=== PATIENT | male | born 2000 | race Caucasian/White ===

== ENCOUNTER 2024-03-15 15:12 | Outpatient (AMB) | payer OTHER, SELFPAY ==
--- NOTE | 2024-03-15 15:14 | MHC.OFFVIS ---
Vital Signs 03/15/24 15:15 Height 6 ft Weight 176 lb 2.389 oz BMI 23.9 BP 130/70 Blood Pressure Location Lt brachial Position Sitting Pulse 73 Pulse Source Pulse Oximeter Pulse Oximetry (%) 97 Oxygen Delivery Method Room Air Intake Visit Reasons: Intake Note: New patient presents today for consult. Mother and brother +HLA-B27 C/o right sided low back pain and right hip pain Symptoms started approx around the age of 8-9 Has tried Humira, Taltz, Simponi (current) Patient recently seen by Dr. Guillen and previously seen by Dr. Garcia at [facility] Food Required: No Accompanied by: Mother Allergies No Known Allergies Allergy (Verified 03/15/24 15:19) Medication List - Last Reconciled 03/15/24 by Jose Troy MD escitalopram oxalate 10 mg PO DAILY golimumab (Simponi) mg subcut Q4W HPI Comments Details: This is a 23-year-old male who presents to clinic accompanied by his mother for evaluation of inflammatory arthritis. The condition started approximately age 9 patient was initially diagnosed with juvenile rheumatoid arthritis. Subsequent evaluation showed bilateral sacroiliitis as well as HLA B27 positivity. Was on sulfasalazine for a few months which was not helpful and poorly tolerated, he was switched to Humira. There were some issues with compliance and he developed left eye uveitis when he was off the Humira. Usually treated with steroid eyedrops. 1st iritis episode was in his teens. Patient developed psoriasis in approximately 2021. Biopsy-proven. It was suspected that it was a side effect of Humira. He was switched to Taltz was which was quite effective for the psoriasis but was not helping his back and hip pain. He was switched to Simponi proximally 2021 and has been working quite well. Today patient is doing quite well with no complaints. His brother has a similar condition. His mother is HLA B27 positive as well as his maternal aunt [facility] Medical History (Updated 03/15/24 @ 15:50 by Jose Troy MD) HLA-B27 associated acute anterior uveitis Psoriasis HLA-B27 spondyloarthropathy Surgical History (Updated 03/15/24 @ 15:46 by Jose Troy MD) History of thoracic surgery Family History (Updated 03/15/24 @ 15:30 by Jose Troy MD) Mother HLA B27 (HLA B27 positive) Brother Ankylosing spondylitis HLA B27 (HLA B27 positive) Maternal Aunt HLA B27 (HLA B27 positive) Social History (Updated 03/15/24 @ 15:19 by IDANIA Linares) Alcohol intake: current Alcohol intake frequency: holidays/special occasions only Patient Tobacco Use Status: Never used Tobacco Current occupational status: unemployed Review of Systems Musc Denies back pain, Denies arthralgias, Denies joint swelling, Denies limited range of motion and Denies stiffness Physical Exam Vital Signs: Last Vital Signs Pulse 73 03/15/24 15:15 BP 130/70 03/15/24 15:15 Pulse Ox 97 03/15/24 15:15 Oxygen Delivery Method Room Air 03/15/24 15:15 BMI result Body Mass Index 23.9 Const General: cooperative, healthy appearing and comfortable Nutritional Appearance: average body habitus Orientation/consciousness: patient oriented x3 Limitations: no limitations HEENT Head: Yes normocephalic and Yes atraumatic Mouth: moist mucous membranes Resp Effort & Inspection: normal respiratory effort and able to speak in complete sentences Auscultation: clear to auscultation bilaterally Cardio Rate: regular rate Rhythm: regular rhythm Heart sounds: S1 normal heart sound present and S2 normal heart sound present GI Inspection: No distended Palpation (GI): Soft to palpation and nontender Neuro General: patient oriented x3 Extrem Other: No active synovitis April test 10-16 cm Negative straight leg raise test bilaterally Negative Fabere test bilaterally Range of motion of elbows, shoulders, bilaterally Negative rotator cuff provocative maneuvers bilaterally No nail pitting Normal nailfold capillaroscopy Assessment & Plan Assessment & Plan (1) Ankylosing spondylitis: Comment: dx 2009 HLA B27 positive, bilateral sacroiliitis, left eye iritis SSZ briefly 2009 not effective and poorly tolerated. Humira regularly since around 2009 Humira DC 2021 due to psoriasis Taltz 2021 for a few months effective for psoriasis but not for spondylitis Simponi 2021 effective Code(s): M45.9 - Ankylosing spondylitis of unspecified sites in spine Category: Medical Qualifiers: Ankylosing spondylitis location: sacral region Qualified Code(s): M45.8 - Ankylosing spondylitis sacral and sacrococcygeal region Plan: This is a 23-year-old male with HLA B27 positive ankylosing spondylitis who presents as a new patient. Patient is doing quite well on Simponi subcutaneously 50 mg q.4 weeks. I do not see any evidence of active disease. Check labs to evaluate disease activity as well as Infectious screening labs. Check bilateral SI joint x-rays as a new baseline Will start prior authorization for Simponi Follow-up in 4 months Plan I spent 45 minutes reviewing patient's chart, evaluating patient, ordering diagnostic workup, counseling patient and documenting in the chart Orders: Orders Immunofixation Pnl, Serum Today H20.00 - Unspecified acute and subacute iridocyclitis, M45.9 - Ankylosing spondylitis of unspecified sites in spine T Spot TB Today Z11.7 - Encounter for testing for latent tuberculosis infection Complete Blood Count Auto Diff Today H20.00 - Unspecified acute and subacute iridocyclitis, M45.9 - Ankylosing spondylitis of unspecified sites in spine Comprehensive Met. Panel Today H20.00 - Unspecified acute and subacute iridocyclitis, M45.9 - Ankylosing spondylitis of unspecified sites in spine C Reactive Protein Today H20.00 - Unspecified acute and subacute iridocyclitis, M45.9 - Ankylosing spondylitis of unspecified sites in spine Erythrocyte Sedimentation Rate Today H20.00 - Unspecified acute and subacute iridocyclitis, M45.9 - Ankylosing spondylitis of unspecified sites in spine Hepatitis A,B,C Profile Today Z11.59 - Encounter for screening for other viral diseases Protein Electrophoresis, Serum Today H20.00 - Unspecified acute and subacute iridocyclitis, M45.9 - Ankylosing spondylitis of unspecified sites in spine XR sacroiliac joint min 3V Today M45.9 - Ankylosing spondylitis of unspecified sites in spine Coding Level of Care Code New Pt Level 4 (47553) Diagnoses Ankylosing spondylitis of sacral region M45.8 Ankylosing spondylitis location: sacral region
[2024-03-15 15:15] VITALS: BP 130/70; PULSE 73; O2SAT 97; BMI 23.9
== END 2024-03-15 15:41 | disposition home or self-care (01) ==
PROVIDERS: Visit Provider Student in an Organized Health Care Education/Training Program
DX: M45.8 Ankylosing spondylitis sacral and sacrococcygeal region (principal)
CPT/HCPCS: 99204

== ENCOUNTER 2024-03-15 15:12 | Outpatient (REF) | payer OTHER, SELFPAY ==
--- NOTE | ~2024-03-15 | XR_ITS ---
EXAMINATION: XR SACROILIAC JOINTS CLINICAL INFORMATION: Ankylosing spondylitis. COMPARISON: None available. TECHNIQUE: 3 views of the sacroiliac joints FINDINGS: Bones and soft tissues are normal. No fracture. Alignment is anatomic. Sacroiliac joint spaces are well-maintained without erosions or surrounding sclerosis. XR/XR sacroiliac joint min 3V IMPRESSION: Normal sacroiliac joints.
[2024-03-15 16:12] LABS: MANUAL DIFF FLAG NO
[2024-03-15 17:07] LABS: Basophils Absolute Auto 0.1 X10*3/uL (0.0-0.2); Basophils Percent Auto 0.9 % (0-2); Eosinophils Absolute Auto 0.1 X10*3/uL (0.0-0.4); Eosinophils Percent Auto 1.1 % (0-4); Hematocrit 47.6 % (42.0-52.0); Hemoglobin 15.9 g/dl (14.0-18.0); Imm Gran Abs Auto 0.05 X10*3/uL (0.00-0.03); Imm Gran Pct Auto 0.9 % (0.0-0.4); Lymphocytes Absolute Auto 1.3 X10*3/uL (1.2-4.9); Lymphocytes Percent Auto 24.5 % (20-40); Mean Corpuscular HGB Conc 33.4 g/dl (31.0-36.0); Mean Corpuscular Hemoglobin 29.4 pg (27.0-33.0); Mean Corpuscular Volume 88.1 fL (80.0-98.0); Mean Platelet Volume 9.5 fL (9.4-12.4); Monocytes Absolute Auto 0.5 X10*3/uL (0.1-1.2); Neutrophils Absolute Auto 3.4 x10*3/uL (2.0-8.3); Neutrophils Percent Auto 63.6 % (45-73); Platelet Count 300 X10*3/uL (160-400); Red Cell Distribution Width 12.8 % (11.0-16.0); White Blood Count 5.3 X10*3/uL (4.8-10.8)
[2024-03-15 17:31] LABS: Alanine Aminotransferase 59 U/L (0-40); Albumin Level 4.7 g/dL (3.5-5.0); Alkaline Phosphatase 85 U/L (39-117); Anion Gap 16 (12-20); Aspartate Amino Transferase 46 U/L (5-37); Bilirubin Total 1.3 mg/dL (0.0-1.0); Blood Urea Nitrogen 13 mg/dL (9-16); C Reactive Protein 0.28 mg/dL (< or = 0.50); Calcium 10.6 mg/dL (8.4-10.2); Carbon Dioxide 22 mmol/L (22-29); Chloride 105 mmol/L (96-108); Estimated Glomerular Filt Rate > 60; Glucose Random 87 mg/dL (60-115); Potassium 4.1 mmol/L (3.3-5.1); Sodium 139 mmol/L (135-145); Total Protein 8.1 g/dL (6.5-8.0)
[2024-03-15 17:53] LABS: Erythrocyte Sedimentation Rate 2 MM/HR (0-15)
[2024-03-16 08:21] LABS: HBS Num1 1.04 mIU/mL (0-7.99); HBc Num1 0.14 S/CO (0.00-0.79); HBsAGNum1 0.24 S/CO (0.00-0.99); Hepatitis A Antibody IgM 0.19 Index (0-0.79); Hepatitis B Core Antibody Nonreactive (Nonreactive); Hepatitis B Surface Antigen Negative (Negative); ~HepC Num1 0.19 S/CO (0.00-0.79); ~Hepatitis A Antibody IgM Nonreactive (Nonreactive); ~Hepatitis B Surface Antibody NONREACTIVE (Nonreactive); ~Hepatitis C Antibody Nonreactive (Nonreactive)
[2024-03-18 11:03] LABS: TS Negative Control Passed; TS Panel A 0; TS Panel B 2; TS Positive Control Passed; TSpotTB Negative (Negative)
[2024-03-18 12:08] LABS: Prot Elec - Albumin 4.5 g/dL (3.8-4.8); Prot Elec - Alpha1 0.3 g/dL (0.2-0.3); Prot Elec - Alpha2 0.8 g/dL (0.5-0.9); Prot Elec - Beta 1 0.6 g/dL (0.4-0.6); Prot Elec - Beta 2 0.5 g/dL (0.2-0.5); Prot Elec - Gamma 0.9 g/dL (0.8-1.7); Prot Elec - Total Protein 7.6 g/dL (6.1-8.1)
[2024-03-18 21:38] LABS: IgA 321 mg/dL (47-310); IgG 995 mg/dL (600-1640); IgM 166 mg/dL (50-300)
== END 2024-03-15 15:13 | disposition home or self-care (01) ==
LOC: HO.XRAY 15:12
PROVIDERS: Visit Provider Student in an Organized Health Care Education/Training Program
DX: H20.00 Unspecified acute and subacute iridocyclitis (principal); M45.9 Ankylosing spondylitis of unspecified sites in spine; Z11.7 Encounter for testing for latent tuberculosis infection
CPT/HCPCS: 36415; 72202; 80053; 82784; 84165; 85025; 85652; 86140; 86334; 86481; 86704; 86706; 86709; 86803; 87340

== ENCOUNTER 2024-07-14 13:53 | Outpatient (AMB) | payer OTHER, SELFPAY ==
[2024-07-14 14:12] VITALS: BP 128/72; PULSE 77; O2SAT 97; BMI 24.5
--- NOTE | 2024-07-14 14:12 | A.OFFVIS_ITS ---
Vital Signs 07/14/24 14:12 Height 6 ft Weight 180 lb 5.41 oz BMI 24.5 BP 128/72 Blood Pressure Location Lt brachial Position Sitting Pulse 77 Pulse Source Pulse Oximeter Pulse Oximetry (%) 97 Oxygen Delivery Method Room Air Intake Visit Reasons: Intake Note: Patient last seen by Doctor Jose Troy on 03/15/24. Presents today for follow up and labs/XR results.? Allergies No Known Allergies Allergy (Verified 07/14/24 14:14) Medication List - Last Reconciled 07/14/24 by Jose Troy MD escitalopram oxalate 10 mg PO DAILY Simponi (golimumab) 50 mg (0.5 mL) subcut Q4W NS Do you need a note to return to daycare/school/sports/work: No HPI Comments Details: 23-year-old male with HLA B27 positive ankylosing spondylitis who presents for follow-up. Doing well overall. Remains on Simponi monthly. No complaints today Initial history: This is a 23-year-old male who presents to clinic accompanied by his mother for evaluation of inflammatory arthritis. The condition started approximately age 9 patient was initially diagnosed with juvenile rheumatoid arthritis. Subsequent evaluation showed bilateral sacroiliitis as well as HLA B27 positivity. Was on sulfasalazine for a few months which was not helpful and poorly tolerated, he was switched to Humira. There were some issues with compliance and he developed left eye uveitis when he was off the Humira. Usually treated with steroid eyedrops. 1st iritis episode was in his teens. Patient developed psoriasis in approximately 2021. Biopsy-proven. It was suspected that it was a side effect of Humira. He was switched to Taltz was which was quite effective for the psoriasis but was not helping his back and hip pain. He was switched to Simponi proximally 2021 and has been working quite well. Today patient is doing quite well with no complaints. His brother has a similar condition. His mother is HLA B27 positive as well as his maternal aunt [facility] Medical History HLA-B27 associated acute anterior uveitis Psoriasis HLA-B27 spondyloarthropathy Surgical History History of thoracic surgery Family History Mother HLA B27 (HLA B27 positive) Brother Ankylosing spondylitis HLA B27 (HLA B27 positive) Maternal Aunt HLA B27 (HLA B27 positive) Social History Alcohol intake: current Alcohol intake frequency: holidays/special occasions only Patient Tobacco Use Status: Never used Tobacco Current occupational status: unemployed Review of Systems Musc Denies back pain, Denies arthralgias, Denies joint swelling, Denies limited range of motion and Denies stiffness Physical Exam Vital Signs: Last Vital Signs Pulse 77 07/14/24 14:12 BP 128/72 07/14/24 14:12 Pulse Ox 97 07/14/24 14:12 Oxygen Delivery Method Room Air 07/14/24 14:12 BMI result Body Mass Index 24.5 Const General: cooperative, healthy appearing and comfortable Nutritional Appearance: average body habitus Orientation/consciousness: patient oriented x3 Limitations: no limitations HEENT Head: Yes normocephalic and Yes atraumatic Mouth: moist mucous membranes Resp Effort & Inspection: normal respiratory effort and able to speak in complete sentences Neuro General: patient oriented x3 Extrem Other: No active synovitis April test 10-16 cm Negative straight leg raise test bilaterally Negative Fabere test bilaterally Range of motion of elbows, shoulders, bilaterally Negative rotator cuff provocative maneuvers bilaterally No nail pitting Normal nailfold capillaroscopy Assessment & Plan Assessment & Plan (1) Ankylosing spondylitis: Comment: dx 2009 HLA B27 positive, bilateral sacroiliitis, left eye iritis SSZ briefly 2009 not effective and poorly tolerated. Humira regularly since around 2009 Humira DC 2021 due to psoriasis Taltz 2021 for a few months effective for psoriasis but not for spondylitis Simponi 2021 effective Code(s): M45.9 - Ankylosing spondylitis of unspecified sites in spine Category: Medical Qualifiers: Ankylosing spondylitis location: sacral region Qualified Code(s): M45.8 - Ankylosing spondylitis sacral and sacrococcygeal region Plan: This is a 23-year-old male with HLA B27 positive ankylosing spondylitis who presents for follow-up. Patient is doing quite well on Simponi subcutaneously 50 mg q.4 weeks. I do not see any evidence of active disease. Continue Simponi Labs before next visit in 6 months (2) Transaminitis: Code(s): R74.01 - Elevation of levels of liver transaminase levels Category: Medical Plan: Labs in March showed transaminitis. Discussed with patient, patient stated that he was drinking excessively while in college. He graduated now. He drinks much less. He now only drinks on the weekends, usually has 7 drinks on Friday diet and 7 drinks on Friday night. Advised patient to cut down on drinking. He mentioned that he had recent blood work by his PCP and his mother (anesthesiologist) stated that his LFTs are improving. We will monitor his LFTs periodically Plan I spent 25 minutes reviewing patient's chart, evaluating patient, ordering diagnostic workup, counseling patient and documenting in the chart Orders: Orders Complete Blood Count Auto Diff 6 Months M45.8 - Ankylosing spondylitis sacral and sacrococcygeal region Comprehensive Met. Panel 6 Months M45.8 - Ankylosing spondylitis sacral and sacrococcygeal region C Reactive Protein 6 Months M45.8 - Ankylosing spondylitis sacral and sacrococcygeal region Erythrocyte Sedimentation Rate 6 Months M45.8 - Ankylosing spondylitis sacral and sacrococcygeal region Coding Level of Care Code Est Pt Level 4 (48026) Diagnoses Ankylosing spondylitis of sacral region M45.8 Ankylosing spondylitis location: sacral region Transaminitis R74.01
== END 2024-07-14 14:47 | disposition home or self-care (01) ==
PROVIDERS: Visit Provider Student in an Organized Health Care Education/Training Program
DX: M45.8 Ankylosing spondylitis sacral and sacrococcygeal region (principal); R74.01 Elevation of levels of liver transaminase levels
CPT/HCPCS: 99214

== ENCOUNTER → 2024-07-14 13:53 | Outpatient (BNVA) | payer OTHER, SELFPAY | PROVIDERS: Visit Provider Student in an Organized Health Care Education/Training Program ==

== ENCOUNTER 2024-12-17 13:06 | Outpatient (AMB) | payer OTHER, SELFPAY ==
[2024-12-17 13:26] VITALS: BP 122/78; PULSE 78; O2SAT 98; BMI 27.0
--- NOTE | 2024-12-17 13:26 | A.OFFVIS_ITS ---
Vital Signs 12/17/24 13:26 Height 6 ft Weight 199 lb 6 oz BMI 27.0 BP 122/78 Blood Pressure Location Lt brachial Position Sitting Pulse 78 Pulse Source Pulse Oximeter Pulse Oximetry (%) 98 Oxygen Delivery Method Room Air Intake Visit Reasons: Intake Note: Patient present follow up . uvitis in lft eye Allergies No Known Allergies Allergy (Verified 12/17/24 13:30) HPI HPI : Details: He had uveitis left eye 10/2024 treated with topical steroid taper. Off since last week. He has had left eye recurrent uveitis x4 every 1-2 years. He has soreness in his hips a day or 2 before Simponi subcutaneous injection is due. He is due for Simponi today. He continues to drink about 10-12 beers on the weekend due to poor them. He completed college last March. He is thinking about writing his LSAT. [facility] Medical History HLA-B27 associated acute anterior uveitis Psoriasis HLA-B27 spondyloarthropathy Surgical History History of thoracic surgery Family History Mother HLA B27 (HLA B27 positive) Brother Ankylosing spondylitis HLA B27 (HLA B27 positive) Maternal Aunt HLA B27 (HLA B27 positive) Social History Alcohol intake: current Alcohol intake frequency: holidays/special occasions only Patient Tobacco Use Status: Never used Tobacco Current occupational status: unemployed Review of Systems Const All systems reviewed & are unremarkable except as noted in HPI and below Physical Exam Vital Signs: Last Vital Signs Pulse 78 12/17/24 13:26 BP 122/78 12/17/24 13:26 Pulse Ox 98 12/17/24 13:26 Oxygen Delivery Method Room Air 12/17/24 13:26 BMI result Body Mass Index 27.0 Const Other: General: Comfortable CVS: RRR Respiratory: clear to auscultation bilaterally. Good respiratory effort Skin: No lesions seen MSK: No tenderness of any joints. No synovitis or dactylitis. Good range of motion of upper extremities and lower extremities. No SI joint tenderness. Negative CJ. Good lumbar flexion. Assessment & Plan Assessment & Plan (1) Ankylosing spondylitis: Comment: He has had relapses of left uveitis on Simponi subcutaneous injection every 1-2 years with most recent episode October 2024 resolving last week treated with topical steroid. Inflammatory back pain is controlled on Simponi. Since uveitis episodes are infrequent, I will continue Simponi. If uveitis episodes become more frequent, can consider adding DMARD therapy methotrexate if he is abstinence from alcohol. Rheumatology history: dx 2008 HLA B27 positive, bilateral sacroiliitis, recurrent left eye iritis. SSZ briefly 2008 not effective and poorly tolerated. Humira regularly since around 3507-5264 due to psoriasis. Taltz 2021 for a few months effective for psoriasis but not for spondylitis. Simponi 2021 to present. Code(s): M45.9 - Ankylosing spondylitis of unspecified sites in spine Category: Medical Qualifiers: Ankylosing spondylitis location: sacral region Qualified Code(s): M45.8 - Ankylosing spondylitis sacral and sacrococcygeal region Plan: We spent a lot of time discussing importance of healthy eating and exercise. I recommended considering Mediterranean diet and meal prepping/home delivery service such as [employer], wet [employer] head miller referral after discussing with PCP and avoiding alcohol. We discussed ways in which he can incorporate exercise daily at least 30 minutes a day. He enjoys basketball. I recommend that he utilize his [employer] membership, especially on the weekends when he drinks out of boredom. He will also look into [employer] [facility]. Continue Simponi 50 mg subcutaneous injection every 4 weeks Requesting last clinic note from [facility] from last week Labs for disease and drug monitoring on high-risk medication ordered Return to clinic in 3 months Orders: Orders Creatinine 12/17/24 Z79.60 - roasterman (current) use of unspecified immunomodulators and immunosuppressants Alanine Aminotransferase 12/17/24 Z79.60 - roasterman (current) use of unspecified immunomodulators and immunosuppressants Aspartate Amino Transferase 12/17/24 Z79.60 - roasterman (current) use of unspecified immunomodulators and immunosuppressants Erythrocyte Sedimentation Rate 12/17/24 M45.8 - Ankylosing spondylitis sacral a nd sacrococcygeal region C Reactive Protein 12/17/24 M45.8 - Ankylosing spondylitis sacral and sacrococcygeal region Complete Blood Count Auto Diff 12/17/24 Z79.60 - skilled nursing (current) use of unspecified immunomodulators and immunosuppressants Coding Level of Care Code Est Pt Level 4 (39778) Complex EM visit Add On G2211 Diagnoses Ankylosing spondylitis of sacral region M45.8 Ankylosing spondylitis location: sacral region
--- OUTSIDE RECORDS SUMMARY | 2024-12-17 13:27 | XMS_ITS ---
[facility] Name [facility] Unknown History of Medication Use Medication Directions Dispensed Refills Start Date End Date Stat golimumab (SIMPONI) 50 MG/0.5ML subcutaneous injection Inject 0.5 mL (50 mg total) under the skin every 30 days (once a month). 11/11/2022 12/04/2023 active ixekizumab (TALTZ) 80 MG/ML pre-filled syringe Inject 1 mL (80 mg total) under the skin every 28 days (4 weeks). 07/01/2022 11/07/2022 aborted ixekizumab (TALTZ) 80 MG/ML auto-injector Inject 1 mL (80 mg total) under the skin every 28 days (4 weeks). 11/08/2021 11/07/2022 aborted golimumab (SIMPONI) 100 MG/ML subcutaneous injection Inject 1 mL (100 mg total) under the skin every 28 days (4 weeks). 11/07/2022 active adalimumab (HUMIRA) 40 MG/0.4ML pen-injector kit CITRATE FREE Inject 0.4 mL (40 mg total) under the skin every 30 days (once a month). 05/25/2021 11/07/2022 aborted prednisoLONE acetate (PRED FORTE) 1 % ophthalmic suspension Administer 1 drop to both eyes 4 (four) times a day. 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
--- OUTSIDE RECORDS SUMMARY | 2024-12-17 13:27 | XMS_ITS | Clinical Summary ---
Author Organization [facility] Address [address] [place] [address] Care Team Providers Care Rehabilitation Physician Name Role Phone Sherif Mendoza MD Primary Care Provider [phone] Gordon Guillen MD Unavailable Unavailable Allergies No known active allergies Medications Medication Sig Dispensed Refills Start Date End Date Status prednisoLONE acetate (PRED FORTE) 1 % ophthalmic suspensionIndicatio ns:Iritis Administer 1 drop to both eyes 4 (four) times a day. 5 mL 3 08/14/2021 Active escitalopram (LEXAPRO) 10 MG tablet 10/31/2022 Active Simponi 50 MG/0.5ML subcutaneous injectionIndication s:HLA-B27 spondyloarthropathy ,Guttate psoriasis,Iritis INJECT 0.5ML SUBCUTANEOUSLY EVERY 30 DAYS 0.5 mL 11 12/12/2023 Active golimumab (Simponi) 50 MG/0.5ML subcutaneous injectionIndication s:HLA-B27 spondyloarthropathy ,Guttate psoriasis,Iritis Inject 0.5 mL (50 mg total) under the skin every 30 days (once a month). 0.5 mL 1 12/12/2023 Active Active Problems Problem Noted Date Diagnosed Date Guttate psoriasis 11/07/2021 HLA-B27 spondyloarthropathy 11/22/2020 Iritis 11/22/2020 Encounter for monitoring golimumab therapy 11/22 Family History Relation Name Status Comments Father Alive Mother Alive Social History Tobacco Use Types Packs/Day Years Used Date Smoking Tobacco: Never Smokeless Tobacco: Never Tobacco Cessation:Counseling Given: Not Answered Alcohol Use Standard Drinks/Week Comments Yes 0 (1 standard drink = 0.6 oz pur e alcohol) rare Sex and Gender Information Value Date Recorded Sex Assigned at Male 01/08/2024 9:40 AM EST Gender Identity Not on file Sexual Orientation Not on file Last Filed Vital Signs Vital Sign Reading Time Taken Comments Blood Pressure 122/80 11/07/2022 9:08 AM EST Pulse 64 11/07/2022 9:08 AM EST Temperature 36.8 ??C (98.2 ??F) 11/07/2022 9:08 AM ES T Respiratory Rate - - Oxygen Saturation 96% 11/07/2022 9:08 AM EST Inhaled Oxygen Concentration - - Weight 77.1 kg (170 lb) 01/08/2024 9:54 AM EST Height 185.4 cm (6' 1 ) 01/08/2024 9:54 AM EST Body Mass Index 22.43 01/08/2024 9:54 AM EST Plan of Treatment Health Maintenance Due Date Last Done Comments Hepatitis C Virus Screening 2001 COVID-19 Vaccine (#1) 2006 HIV Screening 2014 HPV Vaccines (1 - Male 3-dos e series) 2016 DTaP/Tdap/Td Vaccines (1 - Tdap) 2020 Hepatitis B Vaccines (1 of 3 - 19+ 3-dose series) 2020 Pneumococcal Vaccine: Pediat junior (0-5 Years) and At-Risk Patients (6 to 49 Years) (1 of 2 - PCV) 2020 Influenza Vaccine 06/03/2024 10/31/2021, , 08/14/2018, Additional history exists Care Teams Rehabilitation Physician Relationship Specialty Start Date End Date Sherif Mendoza MD [address] [place] [id number] PCP - General Pediatric, Adolescent Medicine 09/06/20 Gordon Guillen MD [address] [place] [id number] Rheumatology 01/17/24
--- OUTSIDE RECORDS SUMMARY | 2024-12-17 13:27 | XMS_ITS | Encounter Summary ---
Author Organization [facility] Address [address] [place] [address] Care Team Providers Care Application Architect Name Role Phone Sherif Mendoza MD Primary Care Provider [phone] Gordon Guillen MD Unavailable Unavailable Encounter Details Date Type Department Care Team (Late st Contact Info) Description 12/24/2023 Scanned Document [facility] Rheumatology [address] [id number] Rheumatology, Scan Social History Tobacco Use Types Packs/Day Years Used Date Smoking Tobacco: Never Smokeless Tobacco: Never Alcohol Use Standard Drinks/Week Comments Yes 0 (1 standard drink = 0.6 oz pur e alcohol) rare Sex and Gender Information Value Date Recorded Sex Assigned at Male 01/08/2024 9:40 AM EST Gender Identity Not on file Sexual Orientation Not on file documented as of this encounter Plan of Treatment Not on file documented as of this encounter Visit Diagnoses Not on filedocumented in this encounter Care Teams Application Architect Relationship Specialty Start Date End Date Sherif Mendoza MD [address] [place] [id number] PCP - General Pediatric, Adolescent Medicine 09/06/20 Gordon Guillen MD [address] [place] [phone] Rheumatology 01/17/24 documented as of this encounter
--- OUTSIDE RECORDS SUMMARY | 2024-12-17 13:27 | XMS_ITS | Clinical Summary ---
Author Organization [facility] Address [phone] [facility] [place] [address] Care Team Providers Care Patient Experience Coordinator Name Role Phone Sherif Mendoza MD Primary Care Provider [phone] Social History Tobacco Use Types Packs/Day Years Used Date Smoking Tobacco: Never Assessed Education Answer Date Recorded Are you interested in more education? Not on dorothea e 02/28/2023 Are you concerned about learning? Not on file 02/28/2023 No 02/28/2023 No 02/28/2023 Digital Access Answer Date Recorded No 03/29/2023 No 03/29/2023 No 03/29/2023 Reliable internet access at home? Not on file 03/29/2023 Device with a working camera? Not on file Sex and Gender Information Value Date Recorded Sex Assigned at Not on file Gender Identity Not on file Sexual Orientation Not on file Plan of Treatment Health Maintenance Due Date Last Done Comments HEPATITIS B VACCINES (2 of 3 - 3-dose series) 2001 2001 DEPRESSION SCREENING 2013 HEPATITIS A VACCINES (2 of 2 - 2-dose series) 09/07/2014 03/07/2014 SMOKING Hx and SMOKELESS TOBACCO SCREENING 2014 HPV VACCINES (3 - Male 3-dose series) 10/09/2017 07/17/2017, 03/12/2017 HEPATITIS B SCREENING 2019 HEPATITIS C SCREENING 2019 HIV ONE-TIME SCREENING (18-65 YEARS) 2019 Adult Td,Tdap Booster 05/04/2023 05/04/2013 INFLUENZA VACCINE (#1) 2024 7, 09/02/2016, 09/04/2015, Additional history exists COVID-19 VACCINE ( season) 2024 05/22/2021, 04/24/2021 MENINGOCOCCAL VACCINES (ACWY) Aged Out 05/04/2013 No longer eligible based on patient's age to complete this topic HIB VACCINES Aged Out No longer eligi ble based on patient's age to complete this topic PNEUMOCOCCAL VACCINES (0-49 years) Aged Out No longer eligible based on patient's age to complete this topic Medical Devices Not on file Care Teams Patient Experience Coordinator Relationship Specialty Start Date End Date Sherif Mendoza MD [address] [facility] [address] [place] [address] PCP - General Adolescent Medicine 04/26/20 Additional Source Comments The information contained in this document represents components of the legal health record. It is not the complete legal health record.[facility]
--- OUTSIDE RECORDS SUMMARY | 2024-12-17 13:27 | XMS_ITS | Encounter Summary ---
Author Organization [facility] Address [address] [place] [address] Care Team Providers Care Account General Manager Name Role Phone Sherif Mendoza MD Primary Care Provider [phone] Gordon Guillen MD Unavailable Unavailable Encounter Details Date Type Department Care Team (Late st Contact Info) Description 12/30/2023 Scanned Document [facility] RHEUMATOLOGY SCAN Rheumatology, Scan Social History Tobacco Use Types [...] on filedocumented in this encounter Care Teams Account General Manager Relationship Specialty Start Date End Date Sherif Mendoza MD [address] [place] [id number] PCP - General Pediatric, Adolescent Medicine 09/06/20 Gordon Guillen MD [address] [place] [address] Rheumatology 01/17/24 documented as of this encounter
--- OUTSIDE RECORDS SUMMARY | 2024-12-17 13:27 | XMS_ITS | Clinical Summary ---
Author Organization [facility] Address [address] [place] [address] Phone Care Team Providers Care Hydrogen Braze Furnace Operator Name Role Phone Unavailable Primary Care Provider Unavailabl e Allergies No known active allergies Medications HUMIRA 40 MG/0.4ML Prefilled Syringe Kit every 30 (thirty) days. 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 Assessment & Plan (03/28/2021 5:07 PM EDT): Uncertain etiology but not cw scabies Refer to Derm for clarification of diagnosis Moisturizing cream but no other tx for now. He has images to show Dermatology. Rash is not troubling to him in any way. Rash confined to mainly sun areas on extremities, Uveitis 10/25/2019 Assessment & Plan (10/31/2021 5:17 PM EST): Eye provider has been seen and last eval 09/2021, no meds. Assessment & Plan (04/26/2020 11:30 AM EDT): Likely resolved and needs reevaluation w his eye doctor Assessment & Plan (10/25/2019 8:52 AM EST): See Rheum/ophtho specialist Generalized anxiety disorder 05/27/2018 Assessment & Plan (11/02/2021 11:32 AM EST): Doing well on Celexa, see another provider who prescribes this Assessment & Plan (04/26/2020 11:29 AM EDT): Doing well on sertraline, has med provider in [place]. Assessment & Plan (04/21/2019 1:40 PM EDT): Stable on Sertraline 100mg daily, feels he no longer needs counseling. Assessment & Plan (05/27/2018 12:04 PM EDT): Sertraline 50 mg doing well continue Pectus excavatum 05/27/2018 Assessment & Plan (10/31/2021 5:18 PM EST): S/p Sudarshan, bar out 12/2019 and doing well. Assessment & Plan (04/26/2020 11:28 AM EDT): Sudarshan Procedure Vebruary 2019 thru [facility] and doing well after procedure. Assessment & Plan (10/25/2019 8:54 AM EST): Sudarshan procedure soon Assessment & Plan (04/21/2019 1:41 PM EDT): Ongoing, Dr. Mayberry again this summer, maybe Sudarshan procedure. Assessment & Plan (05/27/2018 12:04 PM EDT): Worsening, Dr. Mayberry evaluation Lactose intolerance 03/12/2017 Overview (05/25/2018): Lactose intolerance (271.3) Onset: 03/12/2017 Added by: Sherif Mendoza Assessment & Plan (10/31/2021 5:18 PM EST): Limits dairy, uses lactase tab Assessment & Plan (04/21/2019 1:39 PM EDT): Mild, can do some dairy. Forgets to take lactase tabs. 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 Assessment & Plan (04/26/2020 11:27 AM EDT): NEEDS APPT w new Bilingual Patient Support Caseworker this summer Continue Humira Doing well. Assessment & Plan (04/21/2019 1:44 PM EDT): Sees Dr. Garcia, on Humira with great response, overdue to most recent injection. Assessment & Plan (05/27/2018 12:04 PM EDT): Doing well in general on Humira, Dr. Garcia sees and may add Methotrexate Resolved Problems Problem Noted Date Diagnosed Date Resolved Date Fatigue 05/27/2018 04/21/2019 Assessment & Plan (05/27/2018 12:05 PM EDT): Uncertain if assoc w Ankylosing Spon vs other cause. Check labs Gynecomastia 05/27/2018 10/25/2019 Assessment & Plan (04/21/2019 1:42 PM EDT): Not changing, maybe can be corrected if Sudarshan procedure. Dilated pupil 05/27/2018 04/21/2019 Assessment & Plan (05/27/2018 12:06 PM EDT): Advise eye exam per routine, reactive and vision seems ok Generalized anxiety disorder 07/03/2012 05/27/2018 Overview (05/25/2018): Anxiety, generalized (300.02) Onset: 07/03/2012 Added by: Sherif Mendoza Immunizations Immunization Administration Dates Next Due DTaP 5 09/19/2006, 3,03/26/2002,01/26,2001 H1N1 10/07/2009,08/25/2009 HPV Vaccine 9 Valent 12/24/2017,07/17/2017,03/12 Hep A, ped/adol 03/07/2014,02/19/2011 Hep B, ped/adol 07/02/2002,2001,2001 Hib (PRP-T) 10/15/2002, 2,01/26/2002,11/25 IPV 09/20/2005, 2,01/26/2002,11/25 Influenza, injectable, quadr ivalent, preservative free 10/31/2021,10/20/2019,08/14/2018,07/17,09/02/2016,09/04/2015 Influenza, injectable, triva lent, preservative free 09/03/2010,07/18/2009,08/09/2008,08/18,08/26/2006,09/20/2005 Influenza, intranasal, quadrivalent 09/05/2014,1 11/08/2012 Influenza, intranasal, trivalent 08/21/2012,07/05 MMR 09/19/2006,01/14/2003 Meningococcal B Trumenba 10/20/2019,04/21/2019 Meningococcal Conj (Menactra) MCV4P 05/27/2018,0 05/04/2013 Pneumococcal Conjugate 04/19/2003,2001,03/26/2002,01/26,2001 Tdap 05/04/2013 Varicella 01/08/2008,04/19/2003,10/15/2002 Family History Medical History Relation Name Comments Allergic rhinitis Brother Anxiety disorder Brother Substance abuse Brother Allergic rhinitis Father Anxiety disorder Father Asthma Father Depression Father Hearing loss Father Obesity Father Hyperlipidemia Father's Brother Hypertension Father's Brother Obesity Father's Brother Substance abuse Father's Brother Anxiety disorder Maternal Grandfather Hearing loss Maternal Grandfather Hyperlipidemia Maternal Grandfather Hypertension Maternal Grandfather Anemia Maternal Grandmother Anxiety disorder Maternal Grandmother Depression Maternal Grandmother Obesity Maternal Grandmother Thyroid disease Maternal Grandmother Anxiety disorder Mother Asthma Mother Depression Mother Food allergies Mother Obesity Mother Anxiety disorder Mother's Brother Depression Mother's Brother Anxiety disorder Mother's Sister Depression Mother's Sister Substance abuse Paternal Grandfather Allergic rhinitis Paternal Grandmother Asthma Paternal Grandmother Hearing loss Paternal Grandmother Substance abuse Paternal Grandmother Relation Name Status Comments Brother Father Father's Brother Maternal Grandfather Maternal Grandmother Mother Mother's Brother Mother's Sister Paternal Grandfather Paternal Grandmother Social History Tobacco Use Types Packs/Day Years Used Date Smoking Tobacco: Light Smoker Smokeless Tobacco: Never Comments:occas vaping Alcohol Use Standard Drinks/Week Comments Yes 0 (1 standard drink = 0.6 oz pur e alcohol) < 1x per month Hunger/Food Answer Date Recorded In the last 12 months, did y ou or your family ever eat less than you felt you should because there wasn't enough money for food? No 10/31/2021 Stable Housing Answer Date Recorded Are you worried that in the next 2 months you may not have stable housing? No 10/31/2021 Transportation Concerns Answer Date Rec orded In the last 12 months, have you or your family ever had to go without healthcare because you didn't have a way to get there? No 10/31/2021 Hazards in Home Answer Date Recorded Think about the place you li ve. Do you have problems with any of the following? Pests (mice or roaches), mold, no/not working smoke detectors, water leaks, no window guards. No 2020 Financing Utilities Answer Date Recorde d In the last 12 months, has t he electric, gas, oil, or water company threatened to shut off your services in your home? No 10/31/2021 Safety at Home Answer Date Recorded Are you or your family worried about feeling saf e in your home? No 10/31/2021 Outside Support Answer Date Recorded Do you feel that you need mo re support from other people or programs to help you care for yourself or your family? No 10/31/2021 Understanding Health Concerns Answer Da te Recorded Do you need help understandi ng your or your child's healthcare needs (diagnosis, medications, plan, etc.)? No 10/31/2021 Financing Health Concerns Answer Date R ecorded In the last 12 months, was t here a time when your child needed to see a doctor or get medications or supplies but could not because of cost? No 10/31/2021 Missing School or Work Answer Date Liborio rded Did you or your child miss s chool or work because of a health problem that could have been avoided? No 10/31/2021 Sex and Gender Information Value Date Recorded Sex Assigned at Not on file Legal Sex Male 6:33 PM EDT Gender Identity Not on file Sexual Orientation Not on file Last Filed Vital Signs Vital Sign Reading Time Taken Comments Blood Pressure 118/74 10/31/2021 4:52 PM EST Pulse 66 10/31/2021 4:52 PM EST Temperature 36.7 ??C (98 ??F) 10/31/2021 4:52 PM EST Respiratory Rate 82 04/26/2020 10:48 AM EDT Oxygen Saturation 98% 10/31/2021 4:52 PM EST Inhaled Oxygen Concentration - - Weight 66.8 kg (147 lb 4.3 oz) 10/31/2021 4:52 P M EST Height 181 cm (5' 11.26 ) 10/31/2021 4:52 PM EST Body Mass Index 20.39 10/31/2021 4:52 PM EST Plan of Treatment Health Maintenance Due Date Last Done Comments DTaP,Tdap,and Td Vaccines (7 - Td or Tdap) 05/04/2023 05/04/2013, 09/19/2006, 04/19/2003, Additional history exists Influenza Vaccines (#1) 2024 10/31/20, 10/20/2019, 08/14/2018, Additional history exists COVID-19 Vaccine (2023-2 5 season) 2024 05/22/2021, 04/24/2021 Hepatitis B Vaccines Completed 07/02/2002, 2001, 2001 HIB Vaccines Completed 10/15/2002, 03/04, 01/26/2002, Additional history exists Pneumococcal Vaccine Completed 04/19/2003, 07/02/2002, 03/26/2002, Additional history exists IPV Vaccines Completed 09/20/2005, 06/05, 01/26/2002, Additional history exists MMR Vaccines Completed 09/19/2006, 01/14/2003 Varicella Vaccines Completed 01/08/2008, 0 04/19/2003, 10/15/2002 Hepatitis A Vaccines Completed 03/07/2014, 02/20/20 11 HPV Vaccines Completed 12/24/2017, 07/04, 03/12/2017 Meningococcal Vaccine Completed 05/27/2018, 013 Men B Vaccine Completed 10/20/2019, 04/21/2019 Insurance [facility] [employer] [phone]
--- OUTSIDE RECORDS SUMMARY | 2024-12-17 13:27 | XMS_ITS | Encounter Summary ---
Author Organization [facility] Address [address] [place] [address] Care Team Providers Care Rfid Systems Engineer Name Role Phone Sherif Mendzoa MD Primary Care Provider [phone] Gordon Guillen MD Unavailable Unavailable Encounter Details Date Type Department Care Team (Late st Contact Info) Description 02/19/2024 Scanned Document [facility] RHEUMATOLOGY SCAN Rheumatology, Scan Social History Tobacco [...] on filedocumented in this encounter Care Teams Rfid Systems Engineer Relationship Specialty Start Date End Date Sherif Mendoza MD [address] [place] [id number] PCP - General Pediatric, Adolescent Medicine 09/06/20 Gordon Guillen MD [address] [place] [id number] Rheumatology 01/17/24 documented as of this encounter
--- OUTSIDE RECORDS SUMMARY | 2024-12-17 13:27 | XMS_ITS | Encounter Summary ---
Author Organization [facility] Address [address] [place] [address] Phone Care Team Providers Care Automotive Glass Technician Name Role Phone Sherif Mendoza MD Primary Care Provider [phone] Encounter Details Date Type Department Care Team (Late st Contact Info) Description 07/23/2011 Conversion Encounter Pediatric And Adolescent Medicine - [address] [address] Social History Tobacco Use Types Packs/Day Years Used Date Smoking Tobacco: Never Assessed Sex and Gender Information Value Date Recorded Sex Assigned at Not on file Legal Sex Male 6:33 PM EDT Gender Identity Not on file Sexual Orientation Not on file documented as of this encounter Plan of Treatment Not on file documented as of this encounter Visit Diagnoses Not on filedocumented in this encounter Care Teams Automotive Glass Technician Relationship Specialty Start Date End Date Sherif Mendoza MD [address] [place] [address] PCP - General 03/11/18 02/04/23 documented as of this encounter
--- OUTSIDE RECORDS SUMMARY | 2024-12-17 13:27 | XMS_ITS | Encounter Summary ---
Author Organization [facility] Address [address] [place] [address] Care Team Providers Care Licensing Coordinator Name Role Phone Sherif Mendoza MD Primary Care Provider Gordon Guillen MD Unavailable Unavailable Encounter Details Date Type Department Care Team (Late st Contact Info) Description 11/11/2022 Scanned Document [facility] RHEUMATOLOGY SCAN Rheumatology, Scan Social History Tobacco Use Types Packs/Day Years Used Date Smoking Tobacco: Never Smokeless Tobacco: Never Alcohol Use Standard Drinks/Week Comments Yes 0 (1 standard drink = 0.6 oz pur e alcohol) rare Sex and Gender Information Value Date Recorded Sex Assigned at Male 01/08/2024 9:40 AM EST Gender Identity Not on file Sexual Orientation Not on file COVID-19 Exposure Response Date Recorded In the last 10 days, have yo u been in contact with someone who was confirmed or suspected to have Coronavirus/COVID-19? No / Unsure 11/07/2022 8:47 AM EST documented as of this encounter Plan of Treatment Not on file documented as of this encounter Visit Diagnoses Not on filedocumented in this encounter Care Teams Licensing Coordinator Relationship Specialty Start Date End Date Sherif Mendoza MD [address] [place] [phone] PCP - General Pediatric, Adolescent Medicine 09/06/20 Gordon Guillen MD [address] [place] [address] Rheumatology 01/17/24 documented as of this encounter
== END 2024-12-17 14:36 | disposition home or self-care (01) ==
PROVIDERS: Visit Provider Internal Medicine Rheumatology
DX: M45.8 Ankylosing spondylitis sacral and sacrococcygeal region (principal)
CPT/HCPCS: 99214

== ENCOUNTER 2025-03-17 13:34 | Outpatient (REF) | payer OTHER, SELFPAY ==
--- OUTSIDE RECORDS SUMMARY | 2025-03-17 15:08 | XMS_ITS | Clinical Summary ---
Author Organization [facility] Address [address] [place] [address] Care Team Providers Care Receiver Bulk System Name Role Phone Sherif Mendoza MD Primary Care Provider [phone] Gordon Guillen MD Unavailable Unavailable MukundNora DO Unavailable [phone] Allergies No known active allergies Medications * [...] 08/14/2018, Additional history exists Insurance Care Teams Receiver Bulk System Relationship Specialty Start Date End Date Sherif Mendoza MD [address] [place] [address] PCP - General Pediatric, Adolescent Medicine 09/06/20 Gordon Guillen MD [address] [place] [address] Rheumatology 01/17/24 Nora Duval DO [address] [place] [address] Psychiatry, General 03/02/25
--- OUTSIDE RECORDS SUMMARY | 2025-03-17 15:08 | XMS_ITS | Encounter Summary ---
Author Organization [facility] Address [address] [place] [address] Phone Care Team Providers Care Side Boss Name Role Phone Sherif Mendoza MD Primary Care Provider [phone] Encounter Details Date Type Department Care Team (Late st Contact Info) Description 07/23/2011 Conversion Encounter Pediatric And Adolescent Medicine - [address] [address] Social History Tobacco Use Types Packs/Day Years [...] on filedocumented in this encounter Care Teams Side Boss Relationship Specialty Start Date End Date Sherif Mendoza MD [address] [place] [address] PCP - General 03/11/18 02/04/23 documented as of this encounter
--- OUTSIDE RECORDS SUMMARY | 2025-03-17 15:08 | XMS_ITS | Encounter Summary ---
Author Organization [facility] Address [address] [place] [address] Care Team Providers Care Application Manager Name Role Phone Sherif Mendoza MD Primary Care Provider [phone] Gordon Guillen MD Unavailable Unavailable Nora Duval DO Unavailable [phone] Encounter Details Date Type Department Care Team (Late st Contact Info) Description 12/30/2023 Scanned Document [facility] RHEUMATOLOGY SCAN Rheumatology, Scan Social [...] filedocumented in this encounter Care Teams Application Manager Relationship Specialty Start Date End Date Sherif Mendoza MD [address] [place] [address] PCP - General Pediatric, Adolescent Medicine 09/06/20 Gordon Guillen MD [address] [place] [address] Rheumatology 01/17/24 Nora Duval DO [address] [place] [address] Psychiatry, General 03/02/25 documented as of this encounter
--- OUTSIDE RECORDS SUMMARY | 2025-03-17 15:08 | XMS_ITS | Encounter Summary ---
Author Organization [facility] Address [address] [place] [address] Care Team Providers Care Aircraft Engine Cylinder Mechanic Name Role Phone Sherif Mendoza MD Primary Care Provider [phone] Gordon Guillen MD Unavailable Unavailable Nora Duval DO Unavailable [phone] Encounter Details Date Type Department Care Team (Late st Contact Info) Description 12/24/2023 Scanned Document [facility] Rheumatology [address] [phone] Rheumatology, Scan Social History Tobacco Use Types [...] on filedocumented in this encounter Care Teams Aircraft Engine Cylinder Mechanic Relationship Specialty Start Date End Date Sherif Mendoza MD [address] [place] [address] PCP - General Pediatric, Adolescent Medicine 09/06/20 Gordon Guillen MD [address] [place] [address] Rheumatology 01/17/24 Nora Duval DO [address] [place] [place] [address] Psychiatry, General 03/02/25 documented as of this encounter
--- OUTSIDE RECORDS SUMMARY | 2025-03-17 15:08 | XMS_ITS | Clinical Summary ---
Author Organization [facility] Address [address] [place] [address] Phone Care Team Providers Care Marketing Systems Manager Name Role Phone Sherif Mendoza MD Primary Care Provider Social History Tobacco Use Types Packs/Day Years [...] O HMO O O O Care Teams Marketing Systems Manager Relationship Specialty Start Date End Date Sherif Mendoza MD [address] [facility] [address] [place] [address] PCP - General Adolescent Medicine 04/26/20 Additional Source Comments The information contained in this document represents components of the legal health record. It is not the complete legal health record.[facility]
--- OUTSIDE RECORDS SUMMARY | 2025-03-17 15:08 | XMS_ITS | Encounter Summary ---
Author Organization [facility] Address [address] [place] [address] Care Team Providers Care Textile Chemist Name Role Phone Sherif Mendoza MD Primary Care Provider [phone] Gordon Guillen MD Unavailable Unavailable Nora Duval DO Unavailable [phone] Encounter Details Date Type Department Care Team (Late st Contact Info) Description 11/11/2022 Scanned Document [facility] RHEUMATOLOGY SCAN Rheumatology, Scan Social [...] on filedocumented in this encounter Care Teams Textile Chemist Relationship Specialty Start Date End Date Sherif Mendoza MD [address] [place] [address] PCP - General Pediatric, Adolescent Medicine 09/06/20 Gordon Guillen MD [address] [place] [address] Rheumatology 01/17/24 Nora Duval DO [address] [place] [address], [place] [address] Psychiatry, General 03/02/25 documented as of this encounter
--- OUTSIDE RECORDS SUMMARY | 2025-03-17 15:09 | XMS_ITS | Encounter Summary ---
Author Organization [facility] Address [address] [place] [address] Care Team Providers Care Treating Inspector Name Role Phone Sherif Mendoza MD Primary Care Provider [phone] Gordon Guillen MD Unavailable Unavailable Nora Duval DO Unavailable [phone] Encounter Details Date Type Department Care Team (Late st Contact Info) Description 02/19/2024 Scanned Document [facility] RHEUMATOLOGY SCAN Rheumatology, Scan Social [...] on filedocumented in this encounter Care Teams Treating Inspector Relationship Specialty Start Date End Date Sherif Mendoza MD [address] [place] [address] PCP - General Pediatric, Adolescent Medicine 09/06/20 Gordon Guillen MD [address] [place] [address] Rheumatology 01/17/24 Nora Duval DO [address] [place] [address] Psychiatry, General 03/02/25 documented as of this encounter
--- OUTSIDE RECORDS SUMMARY | 2025-03-17 15:09 | XMS_ITS | Clinical Summary ---
Author Organization [facility] Address [address] [place] [address] Phone Care Team Providers Care Director Global Sales Name Role Phone Unavailable Primary Care Provider [...] well on sertraline, has med provider in [place]. Assessment & Plan (04/21/2019 1:40 PM EDT): Stable on Sertraline 100mg daily, feels he no longer needs counseling. Assessment & Plan (05/27/2018 12:04 PM EDT): Sertraline 50 mg doing well continue Pectus excavatum 05/27/2018 Assessment & Plan (10/31/2021 5:18 PM EST): S/p Sudarshan, bar out 12/2019 and doing well. Assessment & Plan (04/26/2020 11:28 AM EDT): Sudarshan Procedure Vebruary 2019 thru [facility] and doing well after procedure. Assessment & [...] 5:19 PM EST): NEEDS APPT w new [employer] this summer Continue Humira Doing well. Assessment & Plan (04/26/2020 11:27 AM EDT): NEEDS APPT w new [employer] this summer Continue Humira Doing well. Assessment [...] Men B Vaccine Completed 10/20/2019, 04/21/2019 Insurance [facility] [employer] [phone]
[2025-03-17 17:38] LABS: MANUAL DIFF FLAG NO
[2025-03-17 17:58] LABS: Basophils Absolute Auto 0.1 X10*3/uL (0.0-0.2); Basophils Percent Auto 0.6 % (0-2); Eosinophils Absolute Auto 0.1 X10*3/uL (0.0-0.4); Eosinophils Percent Auto 1.3 % (0-4); Hematocrit 44.7 % (42.0-52.0); Imm Gran Abs Auto 0.06 X10*3/uL (0.00-0.03); Imm Gran Pct Auto 0.8 % (0.0-0.4); Lymphocytes Absolute Auto 1.8 X10*3/uL (1.2-4.9); Lymphocytes Percent Auto 23.1 % (20-40); Mean Corpuscular HGB Conc 33.6 g/dl (31.0-36.0); Mean Corpuscular Hemoglobin 30.1 pg (27.0-33.0); Mean Corpuscular Volume 89.8 fL (80.0-98.0); Mean Platelet Volume 9.3 fL (9.4-12.4); Monocytes Absolute Auto 0.8 X10*3/uL (0.1-1.2); Monocytes Percent Auto 9.6 % (2-11); Neutrophils Absolute Auto 5.2 x10*3/uL (2.0-8.3); Neutrophils Percent Auto 64.6 % (45-73); Platelet Count 368 X10*3/uL (160-400); Red Blood Count 4.98 X10*6/uL (4.60-5.80); Red Cell Distribution Width 12.3 % (11.0-16.0)
[2025-03-17 18:13] LABS: Alanine Aminotransferase 66 U/L (0-40); Aspartate Amino Transferase 52 U/L (5-37); C Reactive Protein 0.49 mg/dL (< or = 0.50); Estimated Glomerular Filt Rate > 60
[2025-03-17 18:51] LABS: Erythrocyte Sedimentation Rate 3 MM/HR (0-15)
== END 2025-03-17 13:35 | disposition home or self-care (01) ==
LOC: HO.HKASLDS 13:34
PROVIDERS: Visit Provider Internal Medicine Rheumatology
DX: M45.8 Ankylosing spondylitis sacral and sacrococcygeal region (principal); Z79.60 Long term (current) use of unspecified immunomodulators and immunosuppressants; Z79.899 Other long term (current) drug therapy
CPT/HCPCS: 36415; 82565; 84450; 84460; 85025; 85652; 86140

== ENCOUNTER 2025-03-17 13:34 | Outpatient (AMB) | payer OTHER, SELFPAY ==
--- NOTE | 2025-03-17 13:44 | MHC.OFFVIS ---
Vital Signs 03/17/25 13:48 Height 6 ft Weight 198 lb 3.129 oz BMI 26.9 BP 134/80 Blood Pressure Location Lt brachial Position Sitting Pulse 72 Pulse Source Pulse Oximeter Pulse Oximetry (%) 98 Oxygen Delivery Method Room Air Intake Visit Reasons: Intake Note: Patient presents for follow up. Allergies No Known Allergies Allergy (Verified 03/17/25 13:47) HPI HPI : Details: No flares. No infections. Left ankle sprain 3 weeks ago. Decrease alcohol intake. COUNT INCLUDES THE [facility] Medical History HLA-B27 associated acute anterior uveitis Psoriasis HLA-B27 spondyloarthropathy Surgical History History of thoracic surgery Family History Mother HLA B27 (HLA B27 positive) Brother Ankylosing spondylitis HLA B27 (HLA B27 positive) Maternal Aunt HLA B27 (HLA B27 positive) Social History Alcohol intake: current Alcohol intake frequency: holidays/special occasions only Patient Tobacco Use Status: Never used Tobacco Current occupational status: unemployed Physical Exam Vital Signs: Last Vital Signs Pulse 72 03/17/25 13:48 BP 134/80 03/17/25 13:48 Pulse Ox 98 03/17/25 13:48 Oxygen Delivery Method Room Air 03/17/25 13:48 BMI result Body Mass Index 26.9 Const Other: General: Comfortable CVS: RRR Respiratory: clear to auscultation bilaterally. Good respiratory effort Skin: No lesions seen MSK: No tenderness of any joints. No dactylitis. Good range of motion of upper extremities and lower extremities. No SI joint tenderness. Negative CJ. Good lumbar flexion. Left ankle swelling with warmth. Assessment & Plan Assessment & Plan (1) Ankylosing spondylitis: Comment: Inflammatory back pain and uveitis is controlled on Simponi. He has made a lot of modifications to his life including reducing alcohol intake, which I commended him on. Labs from December 2024 reviewed. Rheumatology history: dx 2008 HLA B27 positive, bilateral sacroiliitis, recurrent left eye iritis. SSZ briefly 2008 not effective and poorly tolerated. Humira regularly since around [id number] due to psoriasis. Taltz 2021 for a few months effective for psoriasis but not for spondylitis. Simponi 2021 to present. Last uveitis episode 10/2024 treated with topical steroid. Code(s): M45.9 - Ankylosing spondylitis of unspecified sites in spine Category: Medical Qualifiers: Ankylosing spondylitis location: sacral region Qualified Code(s): M45.8 - Ankylosing spondylitis sacral and sacrococcygeal region Plan: Continue Simponi 50 mg subcutaneous injection every 4 weeks Labs for disease and drug monitoring on high-risk medication due today Return to clinic in 3 months Orders: Orders Complete Blood Count Auto Diff Today Z79.60 - terminal supervisor (current) use of unspecified immunomodulators and immunosuppressants Creatinine Today Z79.60 - terminal supervisor (current) use of unspecified immunomodulators and immunosuppressants Alanine Aminotransferase Today Z79.60 - half-way (current) use of unspecified immunomodulators and immunosuppressants Aspartate Amino Transferase Today Z79.60 - half-way (current) use of unspecified immunomodulators and immunosuppressants Erythrocyte Sedimentation Rate Today Z79.899 - Other fdc (current) drug therapy C Reactive Protein Today Z79.899 - Other fdc (current) drug therapy Medications: Refilled Simponi (golimumab) 50 mg (0.5 mL) subcut Q4W 0.5 mL 2RF NS Coding Level of Care Code Est Pt Level 4 (58178) Complex EM visit Add On G2211 Diagnoses Ankylosing spondylitis of sacral region M45.8 Ankylosing spondylitis location: sacral region
[2025-03-17 13:48] VITALS: BP 134/80; PULSE 72; O2SAT 98; BMI 26.9
--- OUTSIDE RECORDS SUMMARY | 2025-03-17 14:11 | XMS_ITS | Encounter Summary ---
Author Organization [facility] Address [address] [place] [address] Phone Care Team Providers Care Travel Information Center Supervisor Name Role Phone Sherif Mendoza MD Primary Care Provider [phone] Encounter Details Date Type Department Care Team (Late st Contact Info) Description 07/23/2011 Conversion Encounter Pediatric And Adolescent Medicine - [address] [address] Social History Tobacco Use Types Packs/Day Years [...] on filedocumented in this encounter Care Teams Travel Information Center Supervisor Relationship Specialty Start Date End Date Sherif Mendoza MD [address] [place] [address] PCP - General 03/11/18 02/04/23 documented as of this encounter
--- OUTSIDE RECORDS SUMMARY | 2025-03-17 14:11 | XMS_ITS | Encounter Summary ---
Author Organization [facility] Address [address] [place] [address] Care Team Providers Care Paper Slitter Name Role Phone Sherif Mendoza MD Primary Care Provider [phone] Gordon Guillen MD Unavailable Unavailable Nora Duval DO Unavailable [phone] Encounter Details Date Type Department Care Team (Late st Contact Info) Description 12/30/2023 Scanned Document [facility] RHEUMATOLOGY SCAN Rheumatology, Scan Social History Tobacco Use Types Packs/Day Years Used Date Smoking Tobacco: Never Smokeless Tobacco: Never Alcohol Use Standard Drinks/Week Comments Yes 0 (1 standard drink = 0.6 oz pur e alcohol) rare Sex and Gender Information Value Date Recorded Sex Assigned at Male 01/08/2024 9:40 AM EST Legal Sex Male 12:11 PM EST Gender Identity Not on file Sexual Orientation Not on file documented as of this encounter Plan of Treatment Not on file documented as of this encounter Visit Diagnoses Not on filedocumented in this encounter Care Teams Paper Slitter Relationship Specialty Start Date End Date Sherif Mendoza MD [address] [place] [phone] PCP - General Pediatric, Adolescent Medicine 09/06/20 Gordon Guillen MD [address] [place] [phone] Rheumatology 01/17/24 Nora Duval DO [address] [place] [address] Psychiatry, General 03/02/25 documented as of this encounter
--- OUTSIDE RECORDS SUMMARY | 2025-03-17 14:11 | XMS_ITS | Clinical Summary ---
Author Organization [facility] Address [address] [place] [address] Phone Care Team Providers Care Purchasing Manager Name Role Phone Unavailable Primary Care Provider [...] well on sertraline, has med provider in [place]. Assessment & Plan (04/21/2019 1:40 PM EDT): Stable on Sertraline 100mg daily, feels he no longer needs counseling. Assessment & Plan (05/27/2018 12:04 PM EDT): Sertraline 50 mg doing well continue Pectus excavatum 05/27/2018 Assessment & Plan (10/31/2021 5:18 PM EST): S/p Sudarshan, bar out 12/2019 and doing well. Assessment & Plan (04/26/2020 11:28 AM EDT): Sudarshan Procedure Vebruary 2019 thru [facility] and doing well after procedure. Assessment & [...] 5:19 PM EST): NEEDS APPT w new Tool Worker this summer Continue Humira Doing well. Assessment & Plan (04/26/2020 11:27 AM EDT): NEEDS APPT w new Tool Worker this summer Continue Humira Doing well. Assessment [...] Men B Vaccine Completed 10/20/2019, 04/21/2019 Insurance [facility] [employer] [phone]
--- OUTSIDE RECORDS SUMMARY | 2025-03-17 14:11 | XMS_ITS | Clinical Summary ---
Author Organization [facility] Address [address] [place] [address] Care Team Providers Care Sales Facilitator Name Role Phone Sherif Mendoza MD Primary Care Provider [phone] Gordon Guillen MD Unavailable Unavailable MukundNora DO Unavailable [phone] Allergies No known active allergies Medications * This document contains information received from the source organization and may not represent a complete record from that organization. prednisoLONE acetate (PRED FORTE) 1 % ophthalmic suspensionIndica tions:Iritis Administer 1 drop to both eyes 4 (four) times a day. 5 mL 3 08/14/20 21 Active escitalopram (LEXAPRO) 10 MG tablet 10/31/20 22 Active Simponi 50 MG/0.5ML subcutaneous injectionIndicat ions:HLA-B27 spondyloarthropa thy,Guttate psoriasis,Iritis INJECT 0.5ML SUBCUTANEOUSLY EVERY 30 DAYS 0.5 mL 11 12/12/19 24 Active golimumab (Simponi) 50 MG/0.5ML subcutaneous injectionIndicat ions:HLA-B27 spondyloarthropa thy,Guttate psoriasis,Iritis Inject 0.5 mL (50 mg total) under the skin every 30 days (once a month). 0.5 mL 1 12/12/19 24 Active Active Problems Problem Noted Date Diagnosed [...] of 2 - PCV) 2020 Influenza Vaccine 06/03/2025 10/31/2021, , 08/14/2018, Additional history exists Insurance Care Teams Sales Facilitator Relationship Specialty Start Date End Date Sherif Mendoza MD [address] [place] [address] PCP - General Pediatric, Adolescent Medicine 09/06/20 Gordon Guillen MD [address] [place] [address] 28560 Rheumatology 01/17/24 Nora Duval DO [address] [place] [address] Psychiatry, General 03/02/25
--- OUTSIDE RECORDS SUMMARY | 2025-03-17 14:11 | XMS_ITS | Encounter Summary ---
Author Organization [facility] Address [address] [place] [address] Care Team Providers Care Logger Name Role Phone Sherif Mendoza MD Primary Care Provider [phone] Gordon Guillen MD Unavailable Unavailable Nora Duval DO Unavailable [phone] Encounter Details Date Type Department Care Team (Late st Contact Info) Description 11/11/2022 Scanned Document [facility] RHEUMATOLOGY SCAN Rheumatology, Scan Social History [...] on filedocumented in this encounter Care Teams Logger Relationship Specialty Start Date End Date Sherif Mendoza MD [address] [place] [address] PCP - General Pediatric, Adolescent Medicine 09/06/20 Gordon Guillen MD [address] [place] [address] 269[address] Rheumatology 01/17/24 Nora Duval DO [address] [place] [address], [place] [address] Psychiatry, General 03/02/25 documented as of this encounter
--- OUTSIDE RECORDS SUMMARY | 2025-03-17 14:11 | XMS_ITS | Encounter Summary ---
Author Organization [facility] Address [address] [place] [address] Care Team Providers Care Telesales Supervisor Name Role Phone Sherif Mendoza MD Primary Care Provider [phone] Gordon Guillen MD Unavailable Unavailable Nora Duval DO Unavailable [phone] Encounter Details Date Type Department Care Team (Late st Contact Info) Description 12/24/2023 Scanned Document [facility] Rheumatology [address] [phone] Rheumatology, Scan Social History Tobacco Use Types [...] on filedocumented in this encounter Care Teams Telesales Supervisor Relationship Specialty Start Date End Date Sherif Mendoza MD [address] [place] [address] PCP - General Pediatric, Adolescent Medicine 09/06/20 Gordon Guillen MD [address] [place] [address] Rheumatology 01/17/24 Nora Duval DO [address] [place] [address] Psychiatry, General 03/02/25 documented as of this encounter
--- OUTSIDE RECORDS SUMMARY | 2025-03-17 14:11 | XMS_ITS | Clinical Summary ---
Author Organization [facility] Address [address] [place] [address] Phone Care Team Providers Care Jet Piercer Operator Name Role Phone Sherif Mendoza MD Primary Care Provider [phone] Social History Tobacco Use Types Packs/Day Years [...] at Not on file Legal Sex Male 3:52 PM EDT Gender Identity Not on file [...] this topic Medical Devices Not on file Insurance O O HMO O O HMO O O O Care Teams Jet Piercer Operator Relationship Specialty Start Date End Date Sherif Mendoza MD [address] [facility] [address] [place] [address] PCP - General Adolescent Medicine 04/26/20 Additional Source Comments The information contained in this document represents components of the legal health record. It is not the complete legal health record.[facility]
--- OUTSIDE RECORDS SUMMARY | 2025-03-17 14:11 | XMS_ITS | Encounter Summary ---
Author Organization [facility] Address [address] [place] [address] Care Team Providers Care Livestock Commission Agent Name Role Phone Sherif Mendoza MD Primary Care Provider [phone] Gordon Guillen MD Unavailable Unavailable Nora Duval DO Unavailable [phone] Encounter Details Date Type Department Care Team (Late st Contact Info) Description 02/19/2024 Scanned Document [facility] RHEUMATOLOGY SCAN Rheumatology, Scan Social History [...] on filedocumented in this encounter Care Teams Livestock Commission Agent Relationship Specialty Start Date End Date Sherif Mendoza MD [address] [place] [address] PCP - General Pediatric, Adolescent Medicine 09/06/20 Gordon Guillen MD [address] [place] [address] Rheumatology 01/17/24 Nora Duval DO [address] [place] [address] Psychiatry, General 03/02/25 documented as of this encounter
== END 2025-03-17 14:25 | disposition home or self-care (01) ==
PROVIDERS: PCP Physician Assistant; Visit Provider Internal Medicine Rheumatology
DX: M45.8 Ankylosing spondylitis sacral and sacrococcygeal region (principal)
CPT/HCPCS: 99214

== ENCOUNTER 2025-09-01 13:58 | Outpatient (REF) | payer OTHER, SELFPAY ==
[2025-09-01 17:33] LABS: MANUAL DIFF FLAG NO
[2025-09-01 17:49] LABS: Hematocrit 44.4 % (42.0-52.0); Hemoglobin 14.6 g/dl (14.0-18.0); Imm Gran Abs Auto 0.08 X10*3/uL (0.00-0.03); Imm Gran Pct Auto 1.0 % (0.0-0.4); Lymphocytes Absolute Auto 2.5 X10*3/uL (1.2-4.9); Mean Corpuscular HGB Conc 32.9 g/dl (31.0-36.0); Mean Corpuscular Hemoglobin 29.6 pg (27.0-33.0); Mean Corpuscular Volume 89.9 fL (80.0-98.0); NRBC Abs Auto 0.000 X10*3/uL (0.0-0.012); NRBC Pct Auto 0.0 /100WBC (0.0-0.2); Platelet Count 352 X10*3/uL (160-400); Red Blood Count 4.94 X10*6/uL (4.60-5.80); White Blood Count 8.4 X10*3/uL (4.8-10.8)
[2025-09-01 18:03] LABS: Alanine Aminotransferase 115 U/L (0-40); Aspartate Amino Transferase 64 U/L (5-37); Estimated Glomerular Filt Rate > 60
== END 2025-09-01 13:59 | disposition home or self-care (01) ==
LOC: HO.HKASLDS 13:58
PROVIDERS: Internal Medicine Rheumatology; PCP Physician Assistant; Visit Provider Student in an Organized Health Care Education/Training Program
DX: Z51.81 Encounter for therapeutic drug level monitoring (principal); M45.8 Ankylosing spondylitis sacral and sacrococcygeal region; R74.01 Elevation of levels of liver transaminase levels; Z79.60 Long term (current) use of unspecified immunomodulators and immunosuppressants; Z79.899 Other long term (current) drug therapy
CPT/HCPCS: 36415; 82565; 84450; 84460; 85025; 85652; 86140

== ENCOUNTER 2025-09-01 13:58 | Outpatient (AMB) | payer OTHER, SELFPAY ==
--- NOTE | 2025-09-01 14:01 | MHC.OFFVIS ---
Vital Signs 09/01/25 14:05 Height 6 ft Weight 221 lb 1.978 oz BMI 30.0 BP 122/90 H Blood Pressure Location Lt brachial Position Sitting Pulse 97 Pulse Source Pulse Oximeter Pulse Oximetry (%) 98 Oxygen Delivery Method Room Air Intake Visit Reasons: Intake Note: Patient presents for follow up. Allergies No Known Allergies Allergy (Verified 09/01/25 14:04) Medication List - Last Reconciled 09/01/25 by Ce Richmond MD bupropion HCl XL 150 mg PO DAILY escitalopram oxalate 10 mg PO DAILY Simponi (golimumab) 50 mg (0.5 mL) subcut Q4W NS HPI Comments Details: Patient is a 24-year-old male with depression and ankylosing spondylitis here today for follow up Interval History: Patient last seen 03/17/[address] 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 SSZ briefly 2008 not effective and poorly tolerated. Humira regularly since around 7133-3925 due to psoriasis. Taltz 2021 for a few months effective for psoriasis but not for spondylitis. Simponi 2021 to present. Last uveitis episode 10/2024 treated with topical steroid. 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 Surgical History History of thoracic surgery Family History Mother HLA B27 (HLA B27 positive) Brother Ankylosing spondylitis HLA B27 (HLA B27 positive) Maternal Aunt HLA B27 (HLA B27 positive) Social History (Reviewed 09/01/25 @ 14:04 by KEYON Brooks Alcohol intake: current Alcohol intake frequency: holidays/special occasions only Patient Tobacco Use Status: Never used Tobacco Current occupational status: unemployed Review of Systems Narrative Review of Systems Constitutional: Denies fever, chills, weight loss ENT: Denies vision changes, eye pain or eye redness, dental caries, dry mouth GI: Denies nausea, vomiting, diarrhea, abdominal pain, change in BM Pulm: Denies SOB, LUDWIG, hemoptysis, wheezing Cards: Denies chest pain, palpitations Skin: Denies Raynaud's, rash, nail changes, photosensitivity, CROP OR GRAIN FARMER: Denies headaches, weakness, paresthesias, recurrent falls MSK: as per HPI All other systems reviewed and are unremarkable except noted above Physical Exam Exam Exam: Vital signs reviewed Physical Examination CONSTITUITIONAL Patient alert and cooperative. Well appearing and in no apparent painful distress MSK Hands Right Hand: Able to make a fist. No swelling or tenderness to palpation of the MCPs, PIPs or DIPs. Left Hand: Able to make a fist. No swelling or tenderness to palpation of the MCPs, PIPs or DIPs. Wrists Right Wrist: Full ROM to flexion and extension. No swelling or TTP Left Wrist: Full ROM to flexion and extension. No swelling or TTP Elbows Right Elbow: Full ROM. No swelling or TTP. No TTP of the medial epicondyle. No TTP of the lateral epicondyle Left Elbow: Full ROM. No swelling or TTP. No TTP of the medial epicondyle. No TTP of the lateral epicondyle Shoulders Right shoulder: Full ROM. No swelling noted. No TTP of the AC joint. No TTP of the subacromial bursa. No TTP of the posterior shoulder Left shoulder: Full ROM. No swelling noted. No TTP of the AC joint. No TTP of the subacromial bursa. No TTP of the posterior shoulder Knees Right knee: Full ROM. No swelling noted. No TTP of the knee joint line. No TTP of pes anserine bursa Left knee: Full ROM. No swelling noted. No TTP of the knee joint line. No TTP of pes anserine bursa. Ankles Right ankle: Good ankle dorsiflexion and plantar flexion. No swelling. No TTP of the ankle joint Left ankle: Good ankle dorsiflexion and plantar flexion. No swelling. No TTP of the ankle joint Feet Right foot: Negative squeeze test Left foot: Negative squeeze test Tender points? No tenderness to palpation of the bilateral trapezius, supraspinatus, anterior costochondral junctions, bilateral suboccipital muscle insertions Modified April's Test: 5cm - > 9cm Vital Signs: Last Vital Signs Pulse 97 09/01/25 14:05 BP 122/90 H 09/01/25 14:05 Pulse Ox 98 09/01/25 14:05 Oxygen Delivery Method Room Air 09/01/25 14:05 BMI result Body Mass Index 30.0 Results Reviewed Results Reviewed: Laboratory Tests 03/15/24 03/17/25 16:10 14:35 WBC 8.0 RBC 4.98 Hgb 15.0 Hct 44.7 Plt Count 368 ESR 3 Creatinine 0.79 Estimated GFR > 60 AST 46 H 52 H ALT 59 H 66 H C-Reactive Protein 0.28 0.49 Laboratory Tests 03/15/24 16:10 Hepatitis A IgM Ab Nonreactive Hep Bs Antigen Negative Hep Bs Antibody NONREACTIVE Hep B Core Total Ab Nonreactive Hepatitis C Ab (EIA) Nonreactive TB Test (T-Spot) Com Negative XR SI Joints 03/2024 FINDINGS: Bones and soft tissues are normal. No fracture. Alignment is anatomic. Sacroiliac joint spaces are well-maintained without erosions or surrounding sclerosis. IMPRESSION: Normal sacroiliac joints. Assessment & Plan Assessment & Plan (1) Ankylosing spondylitis: Comment: dx 2008 HLA B27 positive, bilateral sacroiliitis, recurrent left eye iritis. SSZ briefly 2008 not effective and poorly tolerated. Humira regularly since around 8912-6040 due to psoriasis. Taltz 2021 for a few months effective for psoriasis but not for spondylitis. Simponi 2021 to present. Last uveitis episode 10/2024 treated with topical steroid. Code(s): M45.9 - Ankylosing spondylitis of unspecified sites in spine Category: Medical Qualifiers: Ankylosing spondylitis location: sacral region Qualified Code(s): M45.8 - Ankylosing spondylitis sacral and sacrococcygeal region Plan: #Ankylosing spondylitis Patient is a 24-year-old male with HLA B27 positive ankylosing spondylitis complicated by recurrent iritis Currently stable on Simponi every 4 weeks however given his elevated LFTs we will need to keep close monitor on this Has reasonable mobility of his spine at this time. Encouraged stretching to have continued mobility of the spine Plan - Simponi 50mg SC every 4 weeks - Labs today: CBC, AST, ALT, ESR, CRP - RTC 4 months - Labs before visit: CBC, CMP, ESR, CRP, Hepatitis panel and T spot (2) Transaminitis: Code(s): R74.01 - Elevation of levels of liver transaminase levels Category: Medical Plan: #Transaminitis Patient with elevated AST and ALT Discussed reduction of EtOH intake, limiting Tylenol and NSAID use, reduce fatty/fried food intake Will consider getting US with elastography (3) Encounter for monitoring golimumab therapy: Code(s): Z51.81 - Encounter for therapeutic drug level monitoring; Z79.89 - Other assisted (current) drug therapy Plan: #Long-term Use of TNF Inhibitors: Golimumab Discussed with the patient the benefits and risks of TNF inhibitors for the management of the rheumatic condition Benefits include reduce pain, maintenance of remission and reduction of flares as well as progression of the disease Risks include injection sites/infusion reactions, serious infections (such as bacterial infections, opportunistic infections), malignancy, delaminating syndromes, autoimmune phenomena, CHF exacerbations, palmar plantar psoriasis and cytopenias Recommended rotating injection sites, and holding medication during and for up to 1 week after resolution of a febrile illness or open skin wound Plan I spent 30 minutes reviewing the record and labs, taking a history, examining the patient, discussing the treatment plan, ordering diagnostic work up and documenting in the medical record Orders: Orders Complete Blood Count Auto Diff 4 Months Z. - Other adjunct faculty for medical terminology (current) drug therapy Erythrocyte Sedimentation Rate 4 Months Z.89 - Other adjunct faculty for medical terminology (current) drug therapy Hepatitis B,C Profile 4 Months Z79.89 - Other assisted (current) drug therapy C Reactive Protein 4 Months Z79.89 - Other assisted (current) drug therapy Comprehensive Met. Panel 4 Months Z.89 - Other adjunct faculty for medical terminology (current) drug therapy T Spot TB 4 Months Z.89 - Other assisted (current) drug therapy Coding Level of Care Code Est Pt Level 4 (58557) Complex EM visit Add On G2211 Diagnoses Ankylosing spondylitis of sacral region M45.8 Ankylosing spondylitis location: sacral region Transaminitis R74.01 Encounter for monitoring golimumab therapy Z51.81; Z79.
[2025-09-01 14:05] VITALS: BP 122/90; PULSE 97; O2SAT 98
--- OUTSIDE RECORDS SUMMARY | 2025-09-01 16:58 | XMS_ITS | Data Portability ---
Author Organization [place] - [facility], Allergy Address [address] [address] Care Team Providers Care Nut Process Helper Name Role Phone LETITIA RAMÍREZ Primary Care Provider [phone] Assessment Encounter Date Assessment Date Assessment LastModified by Organization Details LastModified Time 08/01/2025 08/01/2025 Assessment: - Left-sided tinnitus. - Intermittent vertigo. Plan: An MRI of the head will be ordered to rule out other potential causes and confirm the diagnosis of Meniere's disease, as it is typically a disease of exclusion. The patient was counseled on dietary modifications, particularly reducing salt intake, as high salt consumption is commonly associated with Meniere's disease. Suggestions included replacing lunch meats with lower-sodium options and being mindful of condiments. The patient was educated on the nature of tinnitus and informed that there are no medications or procedures available to eliminate the ringing. The patient opted to receive MRI results via the patient portal and was instructed to complete the portal registration process at home. Additional information about the MRI will be provided at checkout. No further questions were raised during the visit. [email or web address] Not available 08/01/2025 11:18:04 Plan of Treatment Reminders Order Date Submit Date Provider Last Modified By Organization Details Last Modified Time Details Appointments None recorded. Lab None recorded. Referral None recorded. Procedures None recorded. Surgeries None recorded. Imaging MRI, brain + internal auditory canal, w/wo contrast 2024 025 [email or web address] [facility] ([facility]), [address] [facility], [place], [address], 10/09/202 5 10:46:48 Medication Orders None recorded. Patient TargetsNo targets recorded. Patient Instructions Encounter Date Encounter Id Patient Instructions Last Modified By Organization Details Last Modified Time 08/01/2025 [id number] - Reduce salt intake by replacing lunch meats with lower-sodium options and being mindful of condiments. - Complete patient portal registration at home to receive MRI results. - Follow up with MRI information provided at checkout. [email or web address] Not available 08/01/2025 11:18:04 Please note: Parts of this encounter note have been generated by AI based on audio conversation. Patient consent was required prior to utilizing this technology. Content review was required prior to finalizing the note. [email or web address] Not available 08/01/2025 11:18:04 Reason for Referral None Reported. Results Created Date Observation Date Name Description Value Unit Range Abnormal Flag Note LastModifiedBy Organization Detail LastModifiedTime 08/01/20 25 audio gram No observ ation record ed. BARCODE Not Available 2024 13:32:13 Result Notes None recorded. Problems Name Problem SNOMED Code Status Onset Date Resolution Date Notes Provider Name and Address Organization Details Recorded Time Tinnitus of left ear 55385440782 06 Active 2022 Tinnitus, left ear; Note: Date Diagnosed : 3 11:04 AM (H93.12) DAHIANA WEBBER MD [address] [place] [address], [place], [address] [facility] - [facility] 5 11:16:41 Sensorine ural hearing loss 24584974 Active 2022 Sensorine ural hearing loss, unilatera l, left ear, with unrestric harpreet hearing on the contralat eral side; Note: Date Diagnosed : 3 11:04 AM (H90.42) Not Available [facility] 4 02:17:44 M ni re's disease 50093746 Active 2022 Meniere's disease, left ear; Note: Date Diagnosed : 3 11:05 AM (H81.02) Not Available [facility] 4 02:17:39 Sensorine ural hearing loss of left ear with normal hearing on right side 4648510261 Active 2024 JACK BORGES [address] [address], [place], [address] , [facility] [place] 10:42:01 Vertigo 695556183 Active 2024 DAHIANA WEBBER MD [address] [place] [address], [place], [address] , [facility] - [facility] [place] 11:16:47 Problem Notes None recorded. Procedures Surgical History Date Name Laterality Status Provider Name and Address Organization Details Recorded Time 08/01/2025 Air & Speech Audio with Tymps - 95531, 94827 & 27883 completed JACK BORGES [address] [place] [address], [place], [address], [facility] - [facility] [place] 08/01/2025 10:40:19 Imaging Results None recorded. Procedure Notes None recorded. Medical Equipment None Reported. Allergies No known drug allergies Medications Name Sig Start Date Stop Date Status Note LastModified by Organization Details LastModified Time Simponi 50 mg/0.5 mL subcutaneous pen injector active Not Available Not Available Not Available Vitals Date Recorded Body height Body mass index (BMI) Body weight Provider Name and Address Organization Details Last Updated DateTime 08/01/2025 182.88 cm 28.5 kg/m2 01598.4 g MULU MCCARTHY [place] - [facility] 08/01/2025 10:53:46 Social History None recorded. Functional Status None recorded. Mental Status None recorded. Family History Nothing Reported. Medical History No medical history recorded. Past Encounters Encounter ID Performer Location Encounter Start Date Encounter Closed Date Diagnosis/Indication Diagnosis SNOMED-CT Code Diagnosis ICD10 Code Diagnosis IMO Codes Diagnosis Note [id number] DAHIANA WEBBER MD [facility] [address] [place] [address] 08/01/2025 10:31:19 08/01/2025 11:19:13 Sensorineural hearing loss of left ear with normal hearing on right side 8370082348 H90.42 00223073 Audiologic al evaluation results: Normal auditory thresholds with excellent speech discrimina tion,AD.No rmal auditory thresholds sloping at 8kHz to a moderately -severe SNHL with excellent speech discrimina tion,. Tympanomet ry: Right Ear:Type C Left Ear:Type A Tinnitus of left ear 145 0924719 106 H93.12 628213 Vertigo 214045821 R42 18594 Health Concerns Section Related Observation LastModified by Organization Detai ls LastModified Time None Recorded Concern Status LastModified by Organization Details LastModified Time None Recorded Advance Directives Directive None Recorded Payers Insurance Date Sequence Insurance Name Policy Number Policy Ng Covered Member ID Ng Member ID Guarantor Name 08/01/[address] [place] [address] [id number] Jose Boston [id number] Jose Boston Notes Date Note Type Note Provider Name and Address Organization Details Recorded Time 08/01/2025 text/html left menieres PV 09/26/23 Samantha, requested MRI onset around 2019, tinnitus on left frequency is several times a day left ear feels pressure got dizzy and nausea associated with tinnitus one time a few years ago no head trauma no migraines no prior hearing tests high salt in diet 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 The patient reports intermittent ringing in the left ear occurring every couple of minutes over the past month, with occasional episodes of vertigo in the past two years. The worst vertigo episode lasted approximately 30 minutes and was accompanied by nausea and vomiting, rendering the patient unable to move his head. He notes difficulty popping his left ear, which has persisted for years, and an increased tendency to ask people to repeat themselves during conversations. The patient recalls receiving information about Meniere's disease during a prior visit approximately two years ago but has not undergone imaging studies such as an MRI. He consumes a diet that includes cereal, lunch meats, and steak or chicken, with occasional fast food, and acknowledges that his salt intake could be improved. 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 His sleep schedule has been irregular but has recently improved to approximately seven to eight hours per night. He denies a history of migraines or head trauma and is not currently taking any new medications. DAHIANA WEBBER MD [address] [place] [address], [address], [facility] - [facility] 08/01/2025 11:18:57
--- OUTSIDE RECORDS SUMMARY | 2025-09-01 16:58 | XMS_ITS | Encounter Summary ---
Author Organization [facility] Address [address] [place] [address] Care Team Providers Care Automobile Parker Name Role Phone Sherif Mendoza MD Primary Care Provider [phone] Gordon Guillen MD Unavailable Unavailable Nora Duval DO Unavailable [phone] Encounter Details Date Type Department Care Team (Late st Contact Info) Description 12/30/2023 Scanned Document [facility] RHEUMATOLOGY SCAN Rheumatology, Scan Social History [...] on filedocumented in this encounter Care Teams Automobile Parker Relationship Specialty Start Date End Date Sherif Mendoza MD [address] [place] [address] PCP - General Pediatric, Adolescent Medicine 09/06/20 Gordon Guillen MD [address] [place] [address] Rheumatology 01/17/24 Nora Duval DO [address] [place] [address] Psychiatry, General 03/02/25 documented as of this encounter
--- OUTSIDE RECORDS SUMMARY | 2025-09-01 16:58 | XMS_ITS | Encounter Summary ---
Author Organization [facility] Address [address] [place] [address] Care Team Providers Care Etl Software Engineer Name Role Phone Sherif Mendoza MD Primary Care Provider [phone] Gordon Guillen MD Unavailable Unavailable Nora Duval DO Unavailable [phone] Encounter Details Date Type Department Care Team (Late st Contact Info) Description 02/19/2024 Scanned Document [facility] RHEUMATOLOGY SCAN Rheumatology, Scan Social History [...] on filedocumented in this encounter Care Teams Etl Software Engineer Relationship Specialty Start Date End Date Sherif Mendoza MD [address] [place] [address] PCP - General Pediatric, Adolescent Medicine 09/06/20 Gordon Guillen MD [address] [place] [address] Rheumatology 01/17/24 Nora Duval DO [address] [place] [address] Psychiatry, General 03/02/25 documented as of this encounter
--- OUTSIDE RECORDS SUMMARY | 2025-09-01 16:58 | XMS_ITS | Encounter Summary ---
Author Organization [facility] Address [address] [place] [address] Care Team Providers Care Locomotive Mechanic Apprentice Name Role Phone Sherif Mendoza MD Primary Care Provider [phone] Gordon Guillen MD Unavailable Unavailable Nora Duval DO Unavailable [phone] Encounter Details Date Type Department Care Team (Late st Contact Info) Description 12/24/2023 Scanned Document [facility] Rheumatology [address] [id number] Rheumatology, Scan Social History Tobacco Use Types [...] on filedocumented in this encounter Care Teams Locomotive Mechanic Apprentice Relationship Specialty Start Date End Date Sherif Mendoza MD [address] [place] [address] PCP - General Pediatric, Adolescent Medicine 09/06/20 Gordon Guillen MD [address] [place] [address] Rheumatology 01/17/24 Nora Duval DO [address] [place] [address] Psychiatry, General 03/02/25 documented as of this encounter
--- OUTSIDE RECORDS SUMMARY | 2025-09-01 16:58 | XMS_ITS | Clinical Summary ---
Author Organization [facility] Address [address] [place] [address] Phone Care Team Providers Care Solar Development Engineer Name Role Phone Unavailable Primary Care Provider [...] well on sertraline, has med provider in [place]. Assessment & Plan (04/21/2019 1:40 PM EDT): Stable on Sertraline 100mg daily, feels he no longer needs counseling. Assessment & Plan (05/27/2018 12:04 PM EDT): Sertraline 50 mg doing well continue Pectus excavatum 05/27/2018 Assessment & Plan (10/31/2021 5:18 PM EST): S/p Sudarshan, bar out 12/2019 and doing well. Assessment & Plan (04/26/2020 11:28 AM EDT): Sudarshan Procedure V[facility]ruary [facility] and doing well after procedure. Assessment [...] 5:19 PM EST): NEEDS APPT w new Library Page this summer Continue Humira Doing well. Assessment & Plan (04/26/2020 11:27 AM EDT): NEEDS APPT w new Library Page this summer Continue Humira Doing well. Assessment [...] 66 10/31/2021 4:52 PM EST Temperature 36.7 C (98 F) 10/31/2021 4:52 PM EST Respiratory Rate 82 [...] 04/19/2003, Additional history exists Influenza Vaccines (#1) 2025 10/31/20 21, 10/20/2019, 08/14/2018, Additional history exists COVID-19 Vaccine (2024-2 6 season) 2025 05/22/2021, 04/24/2021 Hepatitis B Vaccines Completed 07/02/2002, [...] Men B Vaccine Completed 10/20/2019, 04/21/2019 Insurance [facility] [employer] [id number]
--- OUTSIDE RECORDS SUMMARY | 2025-09-01 16:58 | XMS_ITS | Encounter Summary ---
Author Organization [facility] Address [address] [place] [address] Phone Care Team Providers Care Lacrosse Player Name Role Phone Sherif Mendoza MD Primary Care Provider [phone] Encounter Details Date Type Department Care Team (Late st Contact Info) Description 07/23/2011 Conversion Encounter Pediatric And Adolescent Medicine - [address] [address] Social History Tobacco Use Types Packs/Day Years [...] on filedocumented in this encounter Care Teams Lacrosse Player Relationship Specialty Start Date End Date Sherif Mendoza MD [address] [place] [address] PCP - General 03/11/18 02/04/23 documented as of this encounter
--- OUTSIDE RECORDS SUMMARY | 2025-09-01 16:58 | XMS_ITS | Encounter Summary ---
Author Organization [facility] Address [address] [place] [address] Care Team Providers Care Reading Assistant Name Role Phone Sherif Mendoza MD Primary Care Provider [phone] Gordon Guillen MD Unavailable Unavailable Nora Duval DO Unavailable [phone] Encounter Details Date Type Department Care Team (Late st Contact Info) Description 11/11/2022 Scanned Document [facility] RHEUMATOLOGY SCAN Rheumatology, Scan Social [...] on filedocumented in this encounter Care Teams Reading Assistant Relationship Specialty Start Date End Date Sherif Mendoza MD [address] [place] [address] PCP - General Pediatric, Adolescent Medicine 09/06/20 Gordon Guillen MD [address] [place] [address] Rheumatology 01/17/24 Nora Duval DO [address] [place] [address], [place] [address] Psychiatry, General 03/02/25 documented as of this encounter
--- OUTSIDE RECORDS SUMMARY | 2025-09-01 16:58 | XMS_ITS | Clinical Summary ---
Author Organization [facility] Address [address] [place] [address] Care Team Providers Care Computer Repair Technician Name Role Phone Sherif Mendoza MD Primary Care Provider [phone] Gordon Guillen MD Unavailable Unavailable MukundNora DO Unavailable [phone] Allergies No known active allergies Medications * [...] 64 11/07/2022 9:08 AM EST Temperature 36.8 C (98.2 F) 11/07/2022 9:08 AM EST Respiratory Rate - - Oxygen Saturation 96% [...] 08/14/2018, Additional history exists Insurance Care Teams Computer Repair Technician Relationship Specialty Start Date End Date Sherif Mendoza MD [address] [place] [address] PCP - General Pediatric, Adolescent Medicine 09/06/20 Gordon Guillen MD [address] [place] [address] Rheumatology 01/17/24 Nora Duval DO [address] [place] [address] Psychiatry, General 03/02/25
--- OUTSIDE RECORDS SUMMARY | 2025-09-01 16:58 | XMS_ITS ---
Author Name [facility] Organization Unknown History of Medication Use Medication Directions Dispensed Refills Start Date End Date Stat golimumab (Simponi) 50 MG/0.5ML subcutaneous injection Inject 0.5 mL (50 mg total) under the skin every 30 days (once a month). 12/12/2023 active Simponi 50 MG/0.5ML subcutaneous injection INJECT 0.5ML SUBCUTANEOUSLY EVERY 30 DAYS 12/04/2023 12/12/2023 active golimumab (SIMPONI) 50 MG/0.5ML subcutaneous injection Inject 0.5 mL (50 mg total) under the skin every 30 days (once a month). 11/11/2022 12/04/2023 active golimumab (SIMPONI) 100 MG/ML subcutaneous injection Inject 1 mL (100 mg total) under the skin every 28 days (4 weeks). 11/07/2022 active escitalopram (LEXAPRO) 10 MG tablet 10/31/2022 active ixekizumab (TALTZ) 80 MG/ML pre-filled syringe Inject 1 mL (80 mg total) under the skin every 28 days (4 weeks). 07/01/2022 11/07/2022 aborted ixekizumab (TALTZ) 80 MG/ML auto-injector Inject 1 mL (80 mg total) under the skin every 28 days (4 weeks). 11/08/2021 11/07/2022 aborted prednisoLONE acetate (PRED FORTE) 1 % ophthalmic suspension Administer 1 drop to both eyes 4 (four) times a day. 08/14/2021 active adalimumab (HUMIRA) 40 MG/0.4ML pen-injector kit CITRATE FREE Inject 0.4 mL (40 mg total) under the skin every 30 days (once a month). 05/25/2021 11/07/2022 aborted Problems Problem Status Onset Date Problem Type Date of Resoluti on Source Iritis active 2020-11-22 ProblemAct [facility] HLA-B27 spondyloarthropathy [facility] 2020-11-22 [facility] for monitoring golimumab therapy active 2020-11-22 ProblemAct [facility] [place] psoriasis active 2021-11-07 [facility] Encounters Encounter Type Encounter Reason Primary Diagnosis Location Date Ambulatory Other spondylosis, site unspecified Other spondylosis, site unspecified [facility] 01/08/2024 Ambulatory Other spondylosi s, site unspecified [facility] 11/07/2022 Ambulatory Other spondylosi s, site unspecified [facility] 11/07/2021 Care Team Organization Name Specialty Phone Email Start Date End Da te [facility] Sherif Mendoza Primary Care 11/07/2021 01/19/2025 [facility] SHERIF MENDOZA Primary Care 11/07/2021 11/07/2021
--- OUTSIDE RECORDS SUMMARY | 2025-09-01 16:58 | XMS_ITS | Clinical Summary ---
Author Organization [facility] Address [address] [place] [address] Phone Care Team Providers Care Animal Services Officer Name Role Phone Sherif Mendoza MD Primary [...] Health Maintenance Due Date Last Done Comments DEPRESSION SCREENING 2013 HEPATITIS A VACCINES (2 of 2 - 2-dose series) 09/07/2014 03/07/2014 SMOKING Hx and SMOKELESS TOBACCO SCREENING 2014 MENINGOCOCCAL VACCINES (B) (1 of 2 - Standard) 2017 HPV VACCINES (3 - Male 3-dose series) 10/09/2017 07/17/2017, 03/12/2017 HEPATITIS C SCREENING 2019 HIV ONE-TIME SCREENING (18-65 YEARS) 2019 Adult Td,Tdap Booster 05/04/2023 05/04/2013 INFLUENZA VACCINE (#1) 2025 7, 09/02/2016, 09/04/2015, Additional history exists COVID-19 VACCINE ( season) 2025 05/22/2021, 04/24/2021 MENINGOCOCCAL VACCINES (ACWY) Aged Out 05/04/2013 No longer eligible based on patient's age to complete this topic HIB VACCINES Aged Out No longer eligi ble based on patient's age to complete this topic PNEUMOCOCCAL VACCINES (0-49 years) Aged Out No longer eligible based on patient's age to complete this topic Medical Devices Not on file Insurance [place] [address] [place], [place] [address]O O O O Care Teams Animal Services Officer Relationship Specialty Start Date End Date Sherif Mendoza MD [address] [facility] [address] [place] [address] PCP - General Adolescent Medicine 04/26/20 Additional Source Comments The information contained in this document represents components of the legal health record. It is not the complete legal health record.[facility]
== END 2025-09-01 14:24 | disposition home or self-care (01) ==
LOC: HO.RHES 13:59
PROVIDERS: PCP Physician Assistant; Visit Provider Student in an Organized Health Care Education/Training Program
DX: M45.8 Ankylosing spondylitis sacral and sacrococcygeal region (principal); R74.01 Elevation of levels of liver transaminase levels; Z51.81 Encounter for therapeutic drug level monitoring; Z79.899 Other long term (current) drug therapy
CPT/HCPCS: 99214; G2211

== ENCOUNTER 2025-10-06 15:18 | Outpatient (REF) | payer OTHER, SELFPAY ==
[2025-10-06 18:09] LABS: Alanine Aminotransferase 107 U/L (0-40); Albumin Level 4.9 g/dL (3.5-5.0); Alkaline Phosphatase 87 U/L (39-117); Anion Gap 14 (12-20); Aspartate Amino Transferase 62 U/L (5-37); Blood Urea Nitrogen 13 mg/dL (9-16); Calcium 9.8 mg/dL (8.4-10.2); Carbon Dioxide 23 mmol/L (22-29); Chloride 108 mmol/L (96-108); Estimated Glomerular Filt Rate > 60; Potassium 4.2 mmol/L (3.3-5.1); Sodium 141 mmol/L (135-145); Total Protein 7.8 g/dL (6.5-8.0)
--- OUTSIDE RECORDS SUMMARY | 2025-10-06 21:32 | XMS_ITS | Continuity of Care Document ---
Author Organization [place] - [facility], [facility] Address [address] [place] [address] Care Team Providers Care Supervisor Heading Name Role Phone LETITIA RAMÍREZ Primary Care Provider Assessment Encounter Date Assessment Date Assessment LastModified [...] internal auditory canal, w/wo contrast 2024 025 [email or web address] [facility] ([facility]), [address] [place], [address], 10:46:48 Medication Orders None recorded. Patient TargetsNo targets recorded. Patient Instructions Encounter Date Encounter Id Patient Instructions Last Modified By Organization Details Last Modified Time 08/01/2025 [id number] - Reduce salt intake by replacing lunch [...] Flag Note LastModifiedBy Organization Detail LastModifiedTime 08/01/20 audio gram No observ ation record ed. BARCODE Not Available 2024 13:32:13 09/08/2009/06/2025 MRI, brain + brain stem, w/wo contr ast [facility] Access ion Number : [id number] Patien t Name: Randy sandoval Jose Dennis neela Record Number : [id number] Date of : 1999 Date of Exam: 2024 Referr ing Physic liz: Charli Singh Ear Nose [address] [place] [address] Exam: MR Brain (C-/C+ ) CPT 18183 Room Descri ption: Center GE Pion 3T MRI Brain W+W/O Contra st INDICA TION / CLINIC AL QUESTI ON: Sensor ineura l hearin g loss, unilat eral, left ear, with unrest ricted hearin g on the contra latera l side TECHNI QUE: MRI of the brain with attent ion to the media relations intern al audito ry canals was perfor med with and withou t contra st utiliz ing bruceitt al T1, axial T2, axial FLAIR, axial 3D T2 CUBE, axial and baxter l T1, and post-c ontras t axial and baxter l T1-christine ghted sequen jaja. 9 mL of Elucir em was admini stered intrav enousl y. COMPAR ANDREW: None. FINDIN GS: IAC: There is no mass or abnorm al enhanc ement in the media relations intern al audito ry canals or cerebe llopon junior angles . Course and calibe r of the 7th and 8th crania l nerves is normal bilate rally. Fluid signal is preser kate in the inner ear struct ures bilate rally. Brains tem demons trates normal signal . BRAIN and EXTRA- AXIAL SPACES : No signif icant abnorm ality of the visual ized portio ns of the brain and extra- axial spaces . EXTRAC RANIAL SOFT TISSUE S: Visual ized portio ns of the extrac ranial soft tissue s are unrema rkable . BONES: Visual ized marrow signal is preser kate. IMPRES CAM: No retroc ochlea r abnorm ality to explai n the patien t?s sympto ms. WSN: [id number] Orderi ng Physic liz: Charli Singh I Electr onical ly Signed By: [facility] [address] [place], [address], 09/25/2025 10:02:11 Result Notes None recorded. Problems Name Problem SNOMED Code Status Onset Date Resolution Date Notes Provider Name and Address Organization Details Recorded Time Tinnitus of left ear 78729946436 06 Active 2022 Tinnitus, left ear; Note: Date Diagnosed : 3 11:04 AM (H93.12) CHARLI SINGH MD [address] [place] [address], [place], [address] , [facility] - [facility] 5 11:16:41 Sensorine ural hearing loss 07658123 Active 2022 Sensorine ural hearing loss, unilatera l, left ear, with unrestric harpreet hearing on the contralat eral side; Note: Date Diagnosed : 3 11:04 AM (H90.42) Not Available [facility] 4 02:17:44 M ni re's disease 06938652 Active 2022 Meniere's disease, left ear; Note: Date Diagnosed : 3 11:05 AM (H81.02) Not Available [facility] 4 02:17:39 Sensorine ural hearing loss of left ear with normal hearing on right side 0245522672 Active 2024 JACK BORGES [address] [facility],[place] [address], [place], [address] , [facility] - [facility] [place] 10:42:01 Vertigo 937289070 Active 2024 CHARLI SINGH MD [address] [place] [address],[place] [address], [place], [address] , [facility] - [facility] [place] 11:16:47 Problem Notes None recorded. Procedures Surgical History Date Name Laterality Status Provider Name and Address Organization Details Recorded Time 08/01/2025 Air & Speech Audio with Tymps - 14654, 82404 & 80726 completed NATHALIA LINTON [address],[place] [address], [place], [address], [facility] - [facility] [place] 08/01/2025 10:40:19 Imaging Results None recorded. Procedure [...] Updated DateTime 08/01/2025 182.88 cm 28.5 kg/m2 14365.4 g [facility] [place] - [facility] [place] 08/01/2025 10:53:46 Social History None recorded. Functional Status None recorded. Mental Status None recorded. Family History Nothing Reported. Medical History No medical history recorded. Past Encounters Encounter ID Performer Location Encounter Start Date Encounter Closed Date Diagnosis/Indication Diagnosis SNOMED-CT Code Diagnosis ICD10 Code Diagnosis IMO Codes Diagnosis Note [id number] CHARLI SINGH MD [facility] [address] [place] [address] 08/01/2025 10:31:19 08/01/2025 11:19:13 Sensorineural hearing loss of left ear with normal hearing on right side 9821616253 H90.42 62798106 Audiologic al evaluation results: Normal auditory thresholds with excellent speech discrimina tion,AD.No rmal auditory thresholds sloping at 8kHz to a moderately -severe SNHL with excellent speech discrimina tion,. Tympanomet ry: Right Ear:Type C Left Ear:Type A Tinnitus of left ear 940 3233343 106 H93.12 130992 [place] 527639718 R42 20771 Health Concerns Section Related Observation LastModified by Organization Detai ls LastModified Time None Recorded Concern Status LastModified by Organization Details LastModified Time None Recorded Payers Encounter Date Sequence Insurance Name Policy Number Policy Ng Covered Member ID Ng Member ID Guarantor Name 08/01/[address] [place] [address] [id number] Jose Boston [id number] Jose Boston Notes Date Note Type Note [...] is not currently taking any new medications. CHARLI SINGH MD [address] [place] [address], [place], [address], [facility] - [facility] 08/01/2025 11:18:57
--- OUTSIDE RECORDS SUMMARY | 2025-10-06 21:33 | XMS_ITS | Clinical Summary ---
Author Organization [facility] Address [address] [place] [address] Phone Care Team Providers Care Business Development Sales Executive Name Role Phone Unavailable Primary Care Provider [...] well on sertraline, has med provider in [place]. Assessment & Plan (04/21/2019 1:40 PM EDT): Stable on Sertraline 100mg daily, feels he no longer needs counseling. Assessment & Plan (05/27/2018 12:04 PM EDT): Sertraline 50 mg doing well continue Pectus excavatum 05/27/2018 Assessment & Plan (10/31/2021 5:18 PM EST): S/p Sudarshan, bar out 12/2019 and doing well. Assessment & Plan (04/26/2020 11:28 AM EDT): Sudarshan Procedure Vebruary 2019 thru [facility] and doing well after procedure. Assessment & [...] 5:19 PM EST): NEEDS APPT w new Flight Engineer Performance Qualified this summer Continue Humira Doing well. Assessment & Plan (04/26/2020 11:27 AM EDT): NEEDS APPT w new Flight Engineer Performance Qualified this summer Continue Humira Doing well. Assessment [...] Men B Vaccine Completed 10/20/2019, 04/21/2019 Insurance [facility] [facility] [id number]
--- OUTSIDE RECORDS SUMMARY | 2025-10-06 21:33 | XMS_ITS | Encounter Summary ---
Author Organization [facility] Address [address] [place] [address] Care Team Providers Care Fruit Dumper Name Role Phone Sherif Mendoza MD Primary Care Provider [phone] Gordon Guillen MD Unavailable Unavailable Nora Duval DO Unavailable [phone] Encounter Details Date Type Department Care Team (Late st Contact Info) Description 02/19/2024 Scanned Document [facility] RHEUMATOLOGY SCAN Rheumatology, Scan Social History [...] on filedocumented in this encounter Care Teams Fruit Dumper Relationship Specialty Start Date End Date Sherif Mendoza MD [address] [place] [address] PCP - General Pediatric, Adolescent Medicine 09/06/20 Gordon Guillen MD [address] [place] [address] Rheumatology 01/17/24 Nora Duval DO [address] [place] [address] Psychiatry, General 03/02/25 documented as of this encounter
--- OUTSIDE RECORDS SUMMARY | 2025-10-06 21:33 | XMS_ITS | Encounter Summary ---
Author Organization [facility] Address [address] [place] [address] Care Team Providers Care Slubber Runner Name Role Phone Sherif Mendoza MD Primary Care Provider [phone] Gordon Guillen MD Unavailable Unavailable Nora Duval DO Unavailable [phone] Encounter Details Date Type Department Care Team (Late st Contact Info) Description 11/11/2022 Scanned Document [facility] RHEUMATOLOGY SCAN Rheumatology, Scan Social History Tobacco [...] on filedocumented in this encounter Care Teams Slubber Runner Relationship Specialty Start Date End Date Sherif Mendoza MD [address] [place] [address] PCP - General Pediatric, Adolescent Medicine 09/06/20 Gordon Guillen MD [address] [place] [address] Rheumatology 01/17/24 Nora Duval DO [address] [place] [address], [place] [address] Psychiatry, General 03/02/25 documented as of this encounter
--- OUTSIDE RECORDS SUMMARY | 2025-10-06 21:33 | XMS_ITS | Clinical Summary ---
Author Organization [facility] Address [address] [place] [address] Care Team Providers Care Application Integration Engineer Name Role Phone Sherif Mendoza MD Primary Care Provider [phone] Gordon Guillen MD Unavailable Unavailable MukundNora DO Unavailable [phone] Allergies No known active allergies Medications * [...] C Virus Screening 2001 COVID-19 Vaccine (#1) 03/16/2002 HIV Screening 2014 HPV Vaccines (1 - Male 3-dos e series) 2016 DTaP/Tdap/Td Vaccines (1 - Tdap) 2020 Hepatitis B Vaccines (1 of 3 - 19+ 3-dose series) 2020 Pneumococcal Vaccine: Pediat junior (0-5 Years) and At-Risk Patients (6 to 49 Years) (1 of 2 - PCV) 2020 Influenza Vaccine 06/03/2025 10/31/2021, , 08/14/2018, Additional history exists Insurance Care Teams Application Integration Engineer Relationship Specialty Start Date End Date Sherif Mendoza MD [address] [place] [address] PCP - General Pediatric, Adolescent Medicine 09/06/20 Gordon Guillen MD [address] [place] [address] Rheumatology 01/17/24 Nora Duval DO [address] [place] [address] Psychiatry, General 03/02/25
--- OUTSIDE RECORDS SUMMARY | 2025-10-06 21:33 | XMS_ITS | Data Portability ---
Author Organization [place] - [facility], Allergy Address [address] [address] Care Team Providers Care Prepared Foods Supervisor Name Role Phone LETITIA RAMÍREZ Primary Care [...] internal auditory canal, w/wo contrast 2024 025 [email or web address] [facility] ([facility]), [address] [facility], [place], [address], 10:46:48 Medication Orders None recorded. Patient TargetsNo targets recorded. Patient Instructions Encounter Date Encounter Id Patient Instructions Last Modified By Organization Details Last Modified Time 08/01/2025 [id number] - Reduce salt intake by replacing lunch [...] record ed. BARCODE Not Available 2024 13:32:13 09/08/20 25 09/06/2025 MRI, brain + brain stem, w/wo contr ast [facility] Access ion Number : [id number] Patien t Name: Jose Woods Record Number : [id number] Date of : 1999 Date of Exam: 2024 Referr ing Physic liz: Charli Singh Ear Nose [address] [facility] [place] [address] Exam: MR Brain (C-/C+ ) CPT 30438 Room Descri ption: [place] GE Pion 3T MRI Brain W+W/O Contra st INDICA TION / CLINIC AL QUESTI ON: Sensor ineura l hearin g loss, unilat eral, left ear, with unrest ricted hearin g on the contra latera l side TECHNI QUE: MRI of the brain with attent ion to the rn international al audito ry canals was perfor med with and withou t contra st utiliz ing sagitt al T1, axial T2, axial FLAIR, axial 3D T2 CUBE, axial and baxter l T1, and post-c ontras t axial and baxter l T1-christine ghted sequen jaja. 9 mL of Elucir em was admini stered intrav enousl y. COMPAR ANDREW: None. FINDIN GS: IAC: There is no mass or abnorm al enhanc ement in the rn international al audito ry canals or cerebe llopon [...] n the patien t?s sympto ms. WSN: [id number] Orderi ng Physic liz: Charli Singh I Electr onical ly Signed By: Ewa malagon [facility] ([facility]) [address] [place], [address], 09/25/2025 10:02:11 Result Notes Documentation Provider Name and Address Organization Details Recorded Time Mri, Brain + Brain Stem, W/wo Contrast : [facility] Accession Number: [id number] Patient Name: Jose Boston Date of : 2000 Date of Exam: 09-06-2025 Referring Physician: Charli Singh Ear N[facility] [address] [address] [place] [address] Exam: MR Brain (C-/C+) CPT 95804 Room Description: [facility] 3T MRI Brain W+W/O Contrast INDICATION / CLINICAL QUESTION: Sensorineural hearing loss, unilateral, left ear, with unrestricted hearing on the contralateral side TECHNIQUE: MRI of the brain with attention to the internal auditory canals was performed with and without contrast utilizing sagittal T1, axial T2, axial FLAIR, axial 3D T2 CUBE, axial and coronal T1, and post-contrast axial and coronal T1-weighted sequences. 9 mL of Elucirem was administered intravenously. COMPARISON: None. FINDINGS: IAC: There is no mass or abnormal enhancement in the internal auditory canals or cerebellopontine angles. Course and caliber of the 7th and 8th cranial nerves is normal bilaterally. Fluid signal is preserved in the inner ear structures bilaterally. Brainstem demonstrates normal signal. BRAIN and EXTRA-AXIAL SPACES: No significant abnormality of the visualized portions of the brain and extra-axial spaces. EXTRACRANIAL SOFT TISSUES: Visualized portions of the extracranial soft tissues are unremarkable. BONES: Visualized marrow signal is preserved. IMPRESSION: No retrocochlear abnormality to explain the patient?s symptoms. WSN: [id number] Ordering Physician: Charli Singh I Electronically Signed By: Ewa SINGH MD [address] [facility],[place] [address], [place], [address], [place] - [facility] 09/25/2025 10:02:11 Problems Name Problem SNOMED Code Status Onset Date Resolution Date Notes Provider Name and Address Organization Details Recorded Time Tinnitus of left ear 52640288316 06 Active 2022 Tinnitus, left ear; Note: Date Diagnosed : 3 11:04 AM (H93.12) CHARLI SINGH MD [address] [facility],[place] [address], [place], [address] , [facility] - [facility] 5 11:16:41 Sensorine ural hearing loss 91783069 Active 2022 Sensorine ural hearing loss, unilatera l, left ear, with unrestric harpreet hearing on the contralat eral side; Note: Date Diagnosed : 3 11:04 AM (H90.42) Not Available [facility] 4 02:17:44 M ni re's disease 82917999 Active 2022 Meniere's disease, left ear; Note: Date Diagnosed : 3 11:05 AM (H81.02) Not Available [facility] 4 02:17:39 Sensorine ural hearing loss of left ear with normal hearing on right side 9469940929 Active 2024 JACK BORGES 100 [facility] [address], [place], [address] , [place] - [facility] 10:42:01 Vertigo 855076070 Active 2024 CHARLI SINGH MD [address] [place] [address], [place], [address] , [facility] - [facility] [place] 11:16:47 Problem Notes None recorded. Procedures Surgical History Date Name Laterality Status Provider Name and Address Organization Details Recorded Time 08/01/2025 Air & Speech Audio with Tymps - 57304, 47418 & 60903 completed JACK BORGES [address] [place] [address], [place], [address], [facility] - [facility] [place] 08/01/2025 10:40:19 Imaging Results None recorded. Procedure [...] Updated DateTime 08/01/2025 182.88 cm 28.5 kg/m2 42670.4 g [place] [place] - [facility] [place] 08/01/2025 10:53:46 Social History None recorded. Functional Status None recorded. Mental Status None recorded. Family History Nothing Reported. Medical History No medical history recorded. Past Encounters Encounter ID Performer Location Encounter Start Date Encounter Closed Date Diagnosis/Indication Diagnosis SNOMED-CT Code Diagnosis ICD10 Code Diagnosis IMO Codes Diagnosis Note [id number] CHARLI SINGH MD [facility] [address] [place] [address] 08/01/2025 10:31:19 08/01/2025 11:19:13 Sensorineural hearing loss of left ear with normal hearing on right side 9925484576 H90.42 02467451 Audiologic al evaluation results: Normal auditory thresholds with excellent speech discrimina tion,AD.No rmal auditory thresholds sloping at 8kHz to a moderately -severe SNHL with excellent speech discrimina tion,. Tympanomet ry: Right Ear:Type C Left Ear:Type A Tinnitus of left ear 182 0960918 106 H93.12 610000 Vertigo 165023562 R42 74214 Health Concerns Section Related Observation LastModified by Organization Detai ls LastModified Time None Recorded Concern Status LastModified by Organization Details LastModified Time None Recorded Advance Directives Directive None Recorded Payers Insurance Date Sequence Insurance Name Policy Number Policy Ng Covered Member ID Ng Member ID Guarantor Name 08/01/[address] [place] [address] [id number] Jose Boston [id number] Jose Boston Notes Date Note Type Note Provider Name and Address Organization Details Recorded Time 08/01/2025 text/html left menieres PV 09/26/23 Samantha, taj MRI onset around 2019, tinnitus on left [...] taking any new medications. CHARLI SINGH MD [address] [place] [address], [address], [facility] - [facility] 08/01/2025 11:18:57
--- OUTSIDE RECORDS SUMMARY | 2025-10-06 21:33 | XMS_ITS | Encounter Summary ---
Author Organization [facility] Address [address] [place] [address] Phone Care Team Providers Care Golf Course Equipment Operator Name Role Phone Sherif Mendoza MD Primary Care Provider [phone] Encounter Details Date Type Department Care Team (Late st Contact Info) Description 07/23/2011 Conversion Encounter Pediatric And Adolescent Medicine - [address] [address] Social History Tobacco Use Types Packs/Day Years [...] on filedocumented in this encounter Care Teams Golf Course Equipment Operator Relationship Specialty Start Date End Date Sherif Mendoza MD [address] [place] [address] PCP - General 03/11/18 02/04/23 documented as of this encounter
--- OUTSIDE RECORDS SUMMARY | 2025-10-06 21:33 | XMS_ITS | Clinical Summary ---
Author Organization [facility] Address [address] [place] [address] Phone Care Team Providers Care Code Enforcement Inspector Name Role Phone Sherif Mendoza MD Primary Care Provider [phone] Social History Tobacco Use Types Packs/Day Years [...] on patient's age to complete this topic MENINGOCOCCAL VACCINES (B) Aged Out N o longer eligible based on patient's age to complete this topic PNEUMOCOCCAL VACCINES (0-49 years) Aged Out No longer eligible based on patient's age to complete this topic Medical Devices Not on file Insurance HMO HMO [address] [place], [place] [id number] [place] [address] [address] HMO O O O Care Teams Code Enforcement Inspector Relationship Specialty Start Date End Date Sherif Mendoza MD [address] [facility] [address] [place] [address] PCP - General Adolescent Medicine 04/26/20 Additional Source Comments The information contained in this document represents components of the legal health record. It is not the complete legal health record.[facility]
--- OUTSIDE RECORDS SUMMARY | 2025-10-06 21:33 | XMS_ITS | Encounter Summary ---
Author Organization [facility] Address [address] [place] [address] Care Team Providers Care Molecular Biology Scientist Name Role Phone Sherif Mendoza MD Primary Care Provider [phone] Gordon Guillen MD Unavailable Unavailable Nora Duval DO Unavailable [phone] Encounter Details Date Type Department Care Team (Late st Contact Info) Description 12/24/2023 Scanned Document [facility] Rheumatology [address] [id number] Rheumatology, Scan Social History Tobacco Use Types [...] on filedocumented in this encounter Care Teams Molecular Biology Scientist Relationship Specialty Start Date End Date Sherif Mendoza MD [address] [place] [address] PCP - General Pediatric, Adolescent Medicine 09/06/20 Gordon Guillen MD [address] [place] [address] Rheumatology 01/17/24 Nora Duval DO [address] [facility] [place] [address] Psychiatry, General 03/02/25 documented as of this encounter
--- OUTSIDE RECORDS SUMMARY | 2025-10-06 21:33 | XMS_ITS | Encounter Summary ---
Author Organization [facility] Address [address] [place] [address] Care Team Providers Care Interior Specialist Name Role Phone Sherif Mendoza MD Primary Care Provider [phone] Gordon Guillen MD Unavailable Unavailable Nora Duval DO Unavailable [phone] Encounter Details Date Type Department Care Team (Late st Contact Info) Description 12/30/2023 Scanned Document [facility] RHEUMATOLOGY SCAN Rheumatology, Scan Social History Tobacco [...] on filedocumented in this encounter Care Teams Interior Specialist Relationship Specialty Start Date End Date Sherif Mendoza MD [address] [place] [address] PCP - General Pediatric, Adolescent Medicine 09/06/20 Gordon Guillen MD [address] [place] [address] Rheumatology 01/17/24 Nora Duval DO [address] [place] [address] Psychiatry, General 03/02/25 documented as of this encounter
== END 2025-10-06 15:19 | disposition home or self-care (01) ==
LOC: HO.HKASLDS 15:18
PROVIDERS: PCP Physician Assistant; Visit Provider Student in an Organized Health Care Education/Training Program
DX: R74.01 Elevation of levels of liver transaminase levels (principal)
CPT/HCPCS: 36415; 80053